=== PATIENT | female | born 1930 | race Caucasian/White ===

== ENCOUNTER 2016-07-19 10:03 | Day surgery (SDC) | payer OTHER ==
[2016-07-19 10:57] LABS: INR 1.19 (0.83-1.16); PROTIME(PATIENT) 15.1 SEC (12.0-15.0)
[2016-07-19] MEDS ORDERED: PROPOFOL 200 MG/20 ML VIAL ONE ×2 (11:50)
[2016-07-19] MEDS ORDERED: ONDANSETRON 4 MG/2 ML VIAL ONE (12:56)
--- NOTE | 2016-07-19 14:25 | GPN ---
[f rep st] PROCEDURE NOTE DATE OF PROCEDURE: 07/19/2016 PROCEDURE: Esophagogastroduodenoscopy with biopsy, endoscopic ultrasound. INDICATION: The patient is an 85-year-old female who presents for restaging of esophageal cancer. CONSENT: Risks, benefits, and alternatives of the procedure were discussed in great detail with the patient. Risks of infection, bleeding, perforation, sedation were discussed. All questions answered . Informed consent obtained. MEDICATIONS: Propofol. Please see Anesthesiology record for details. ESTIMATED BLOOD LOSS: Insignificant. ESOPHAGOGASTRODUODENOSCOPY EXAMINATION: The Olympus upper endoscope was introduced into the mouth an d advanced to the esophagus. The proximal midesophagus was normal in appearance. At 32 cm from the gums, extending to the gastroesophageal junction at 39 cm, the mucosa was ulcerated. In the distal e sophagus, part of the lesion appeared exophytic. This did extend into the cardia area. Biopsies wer e taken. The hiatal hernia extended to 43 cm from the gastroesophageal junction. The stomach was entered and closely examined, including retroflex views of the angularis, cardia and fundus. Mucosa in the antrum erythematous and biopsies were taken. The duodenal bulb was normal in appearance. In the second portion of the duodenum, a plaque was note d and biopsies were taken. ENDOSCOPIC ULTRASOUND EXAMINATION: The Olympus linear and radial echoendoscope was introduced into t he mouth and advanced to second portion of the duodenum. No suspicious periportal, peripancreatic, o r perigastric lymph nodes were appreciated. The pancreas was carefully examined. No masses or lesio ns were seen. The distal esophagus was carefully examined. There was hypoechoic thickening with penetration into t he adventitia consistent with a possible T3 lesion. However this could be secondary to treatment eff ect. No obvious liver lesion was seen. The common bile duct without stone, stricture, or stenosis. IMPRESSION: 1. No lymphadenopathy. 2. No obvious liver lesion. 3. On EUS, did hypoechoic penetration into the adventitia consistent with a T3 lesion. However, thi s could be treatment effect. 4. Followup on oncology. 5. Follow up on biopsy results. /[id number]/MODL
== END 2016-07-19 14:45 | disposition home or self-care (01) ==
LOC: FSGY 10:03
PROVIDERS: ATTEND Internal Medicine Gastroenterology
PROC: 0DB58ZX Excision of Esophagus, Via Natural or Artificial Opening Endoscopic, Diagnostic (ICD-10-PCS; principal; 2016-07-19 11:45)
PROC: 0DB98ZX Excision of Duodenum, Via Natural or Artificial Opening Endoscopic, Diagnostic (ICD-10-PCS; principal; 2016-07-19 11:45)
PROC: 0DB78ZX Excision of Stomach, Pylorus, Via Natural or Artificial Opening Endoscopic, Diagnostic (ICD-10-PCS; principal; 2016-07-19 11:45)
DX: C15.5 Malignant neoplasm of lower third of esophagus (principal); D50.0 Iron deficiency anemia secondary to blood loss (chronic); K59.00 Constipation, unspecified; F31.9 Bipolar disorder, unspecified
CPT/HCPCS: J2405; J2704

== ENCOUNTER → 2016-07-28 | Outpatient (CLI) | payer OTHER | LOC: BHFA 13:15 | PROVIDERS: ATTEND Internal Medicine Interventional Cardiology | DX: Z51.11 Encounter for antineoplastic chemotherapy (principal) ==

== ENCOUNTER → 2016-11-02 | Outpatient (CLI) | payer OTHER | PROVIDERS: ATTEND Internal Medicine Hematology & Oncology | DX: R13.10 Dysphagia, unspecified (principal); K22.2 Esophageal obstruction; K22.4 Dyskinesia of esophagus; K44.9 Diaphragmatic hernia without obstruction or gangrene; K21.9 Gastro-esophageal reflux disease without esophagitis; Z85.01 Personal history of malignant neoplasm of esophagus; Z85.028 Personal history of other malignant neoplasm of stomach | CPT/HCPCS: 74220; 74230; 92611; G8996; G8997; G8998 ==

== ENCOUNTER → 2016-11-03 | Outpatient (CLI) | payer OTHER | LOC: BHFA 14:45 | PROVIDERS: ATTEND Internal Medicine Cardiovascular Disease | DX: Z51.11 Encounter for antineoplastic chemotherapy (principal) ==

== ENCOUNTER → 2017-03-08 | Outpatient (CLI) | payer OTHER | LOC: BHFA 10:00 | PROVIDERS: ATTEND Internal Medicine Cardiovascular Disease | DX: Z51.11 Encounter for antineoplastic chemotherapy (principal) ==

== ENCOUNTER 2017-06-22 07:55 | Inpatient (IN) | payer OTHER ==
[2017-06-22] MEDS ORDERED: NS 1,000 ML IV ONE (08:27)
--- NOTE | 2017-06-22 08:30 | EDPHY ---
H & P Stated Complaint: Diarrhea for 5 days, 1 x emesis, last chemo 1 week ago Time Seen by Provider: 06/22/17 08:16 HPI/ROS: CHIEF COMPLAINT: Diarrhea HISTORY OF PRESENT ILLNESS: Patient is an 86-year-old female with a history of esophageal adenocarcinoma currently being treated with chemotherapy. She has had radiation therapy in the past. She complains of diarrhea for the last 5 days that is watery and nonbloody. She states that she was constipated for 2 weeks and was taking MiraLax until Tuesday when she began having diarrhea and has had diarrhea ever since. She does have a history of a PE and is on Xarelto. She also began a new chemotherapy agent Taxol 1 week ago today. She also had an esophageal stent placed [address] Troncoso. No recent antibiotics. No abdominal pain. No chest pain or shortness of breath. Her daughter states that there was some type of dark clot looking thing next the patient's bed this morning that she thinks the patient may have coughed up. She denies fevers. REVIEW OF SYSTEMS: Constitutional: denies: chills, fever, recent illness, recent injury EENTM: denies: blurred vision, double vision, nose congestion Respiratory: denies: cough, shortness of breath Cardiac: denies: chest pain, irregular heart rate, lightheadedness, palpitations Gastrointestinal/Abdominal: See HPI Genitourinary: denies: dysuria, frequency, hematuria, pain Musculoskeletal: denies: joint pain, muscle pain Skin: denies: lesions, rash, jaundice, bruising Neurological: denies: headache, numbness, paresthesia, tingling, dizziness, weakness Hematologic/Lymphatic: denies: blood clots, easy bleeding, easy bruising Immunologic/allergic: denies: HIV/AIDS, transplant EXAM: GENERAL: Well-appearing, well-nourished and in no acute distress. HEAD: Atraumatic, normocephalic. EYES: Pupils equal round and reactive to light, extraocular movements intact, sclera anicteric, conjunctiva are normal. ENT: TMs normal, nares patent, oropharynx clear without exudates. Slightly dry mucous membranes. NECK: Normal range of motion, supple without lymphadenopathy or JVD. LUNGS: Breath sounds clear to auscultation bilaterally and equal. No wheezes rales or rhonchi. HEART: Regular rate and rhythm without murmurs, rubs or gallops. ABDOMEN: Soft, nontender, normoactive bowel sounds. No guarding, no rebound. No masses appreciated. BACK: No CVA tenderness, no spinal tenderness, step-offs or deformities EXTREMITIES: Normal range of motion, no pitting or edema. No clubbing or cyanosis. NEUROLOGICAL: Cranial nerves II through XII grossly intact. Normal speech, normal gait. 5/5 strength, normal movement in all extremities, normal sensation PSYCH: Normal mood, normal affect. SKIN: Warm, dry, normal turgor, no visible rashes or lesions. 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; bipolar; hypothyroidism; hiatal hernia; DVT; PE; degenerative disk disease - Family History Significant Family History: No pertinent family hx - Social History Smoking Status: Never smoked Alcohol Use: None Drug Use: None Constitutional: Initial Vital Signs Temperature (C) 36.7 C 06/22/17 08:01 Heart Rate 91 06/22/17 08:01 Respiratory Rate 18 06/22/17 08:01 Blood Pressure 115/73 06/22/17 08:01 O2 Sat (%) 93 06/22/17 08:01 O2 Delivery Mode Room Air Allergies/Adverse Reactions: codeine [Codeine] Allergy (Verified 10/05/12 14:17) Rash Penicillins Allergy (Verified 10/05/12 14:17) Home Medications: Medication Instructions Recorded traZODone [traZODONE 50MG (*)] 100 mg PO HS 02/13/16 Fluticasone/Salmeter 250/50Mcg 1 puffs IH BID 06/22/17 [Advair 250/50 (*)] Levothyroxine [Synthroid 88 mcg 88 mcg PO DAILY06 06/22/17 (*)] Wagram Carbonate [Wagram 150 mg PO HS 06/22/17 Carbonate Tab 300 mg (*)] Omeprazole [Prilosec 20 mg] 40 mg PO BID 06/22/17 PACLitaxel [TaxoL] 0 mg IV WE 06/22/17 QUEtiapine FUMARATE [Seroquel 300 mg PO HS 06/22/17 300mg (*)] Rivaroxaban [Xarelto 10mg (*)] 20 mg PO DAILY 06/22/17 Medical Decision Making ED Course/Re-evaluation: The patient was able to provide a stool sample. His watery and dark. Sample sent. 10:00 a.m. the patient has Hemoccult-positive blood. We will hold her Xarelto. I will admit for continued treatment and possible upper endoscopy. I have paged hospital service. 10:05 a.m. I discussed the case with Sadie who will accept for Dr. Rodriguez. Differential Diagnosis: Partial list of the Differential diagnosis considered include but were not limited to; dehydration, GI bleed, cancer and although unlikely based on the history and physical exam, I also considered acute coronary disease, C difficile , sepsis. - Data Points Laboratory Results: Laboratory Results 06/22/17 08:35 06/22/17 08:35 06/22/17 06/22/17 06/22/17 09:00 08:35 08:35 WBC RBC Hgb Hct MCV MCH MCHC RDW Plt Count MPV Neut % (Auto) Lymph % (Auto) Potter % (Auto) Eos % (Auto) Baso % (Auto) Nucleat RBC Rel Count Absolute Neuts (auto) Absolute Lymphs (auto) Absolute Monos (auto) Absolute Eos (auto) Absolute Basos (auto) Absolute Nucleated RBC Immature Gran % Immature Gran # PT 14.0 SEC SEC (12.0-15.0) INR 1.06 (0.83-1.16) APTT 20.7 SEC L SEC (23.0-38.0) Sodium 138 mEq/L mEq/L (134-144) Potassium 4.3 mEq/L mEq/L (3.5-5.2) Chloride 107 mEq/L mEq/L (97-110) Carbon Dioxide 22 mEq/l mEq/l (22-31) Anion Gap 9 mEq/L mEq/L (8-16) BUN 17 mg/dL mg/dL (7-23) Creatinine 0.8 mg/dL mg/dL (0.6-1.0) Estimated GFR > 60 Glucose 108 mg/dL H mg/dL (70-100) Calcium 8.9 mg/dL mg/dL (8.5-10.4) Total Bilirubin 0.6 mg/dL mg/dL (0.1-1.4) Conjugated Bilirubin 0.3 mg/dL mg/dL (0.0-0.5) Unconjugated Bilirubin 0.3 mg/dL mg/dL (0.0-1.1) AST 41 IU/L IU/L (14-46) ALT 40 IU/L IU/L (9-52) Alkaline Phosphatase 83 IU/L IU/L (38-126) Total Protein 6.2 g/dL L g/dL (6.3-8.2) Albumin 3.2 g/dL L g/dL (3.5-5.0) Lipase 92 IU/L IU/L (23-300) Stool Occult Bld Scrn POSITIVE H (NEGATIVE) 06/22/17 08:35 WBC 3.01 10^3/uL L 10^3/uL (3.80-9.50) RBC 2.99 10^6/uL L 10^6/uL (4.18-5.33) Hgb 11.8 g/dL L g/dL (12.6-16.3) Hct 33.5 % L % (38.0-47.0) MCV 112.0 fL H fL (81.5-99.8) MCH 39.5 pg H pg (27.9-34.1) MCHC 35.2 g/dL g/dL (32.4-36.7) RDW 18.0 % H % (11.5-15.2) Plt Count 284 10^3/uL 10^3/uL (150-400) MPV 9.2 fL fL (8.7-11.7) Neut % (Auto) 79.4 % H % (39.3-74.2) Lymph % (Auto) 10.3 % L % (15.0-45.0) Potter % (Auto) 6.6 % % (4.5-13.0) Eos % (Auto) 2.3 % % (0.6-7.6) Baso % (Auto) 0.7 % % (0.3-1.7) Nucleat RBC Rel Count 0.0 % % (0.0-0.2) Absolute Neuts (auto) 2.39 10^3/uL 10^3/uL (1.70-6.50) Absolute Lymphs (auto) 0.31 10^3/uL L 10^3/uL (1.00-3.00) Absolute Monos (auto) 0.20 10^3/uL L 10^3/uL (0.30-0.80) Absolute Eos (auto) 0.07 10^3/uL 10^3/uL (0.03-0.40) Absolute Basos (auto) 0.02 10^3/uL 10^3/uL (0.02-0.10) Absolute Nucleated RBC 0.00 10^3/uL 10^3/uL (0-0.01) Immature Gran % 0.7 % % (0.0-1.1) Immature Gran # 0.02 10^3/uL 10^3/uL (0.00-0.10) PT INR APTT Sodium Potassium Chloride Carbon Dioxide Anion Gap BUN Creatinine Estimated GFR Glucose Calcium Total Bilirubin Conjugated Bilirubin Unconjugated Bilirubin AST ALT Alkaline Phosphatase Total Protein Albumin Lipase Stool Occult Bld Scrn Microbiology Results: MICROBIOLOGY 06/22/17 09:00 Stool Gastrointestinal Tract Panel (PCR) - Final No Organism Detected Medications Given: Discontinued Medications Sodium Chloride (Ns) 1,000 mls @ 0 mls/hr IV EDNOW ONE; Wide Open PRN Reason: Protocol Stop: 06/22/17 08:28 Last Admin: 06/22/17 08:43 Dose: 1,000 mls Departure - Departure Disposition: [facility] Inpatient Acute Clinical Impression: Upper GI bleed Diarrhea Qualifiers: Diarrhea type: unspecified type Qualified Code(s): R19.7 - Diarrhea, unspecified Condition: Fair
[2017-06-22 08:48] LABS: % IMMATURE GRANULYOCYTES 0.7 % (0.0-1.1); ABSOLUTE IMMATURE GRANULOCYTES 0.02 10^3/uL (0.00-0.10); ADD DIFF? NO; ADD MORPH? NO; ADD SCAN? NO; ATYPICAL LYMPHOCYTE FLAG 30 (0-99); FRAGMENT RBC FLAG 0 (0-99); HEMATOCRIT 33.5 % (38.0-47.0); HEMOGLOBIN 11.8 g/dL (12.6-16.3); LEFT SHIFT FLG 10 (0-99); LIPEMIA HEMOLYSIS FLAG 90 (0-99); MEAN CELL HEMOGLOBIN 39.5 pg (27.9-34.1); MEAN CELL HEMOGLOBIN CONCENTR. 35.2 g/dL (32.4-36.7); MEAN PLATELET VOLUME 9.2 fL (8.7-11.7); PLATELET CLUMPS FLAG 0 (0-99); PLATELET COUNT 284 10^3/uL (150-400); RED BLOOD CELL COUNT 2.99 10^6/uL (4.18-5.33)
[2017-06-22 08:57] LABS: INR 1.06 (0.83-1.16)
[2017-06-22 08:59] LABS: APTT 20.7 SEC (23.0-38.0)
[2017-06-22 09:04] LABS: ALANINE AMINOTRANSFERASE 40 IU/L (9-52); ALBUMIN 3.2 g/dL (3.5-5.0); ALKALINE PHOSPHATASE 83 IU/L (38-126); ANION GAP 9 mEq/L (8-16); ASPARTATE AMINOTRANSFERASE 41 IU/L (14-46); BILIRUBIN,TOTAL 0.6 mg/dL (0.1-1.4); BILIRUBIN-CONJUGATED 0.3 mg/dL (0.0-0.5); BILIRUBIN-UNCONJUGATED 0.3 mg/dL (0.0-1.1); CALCIUM 8.9 mg/dL (8.5-10.4); CARBON DIOXIDE 22 mEq/l (22-31); CHLORIDE 107 mEq/L (97-110); CREATININE 0.8 mg/dL (0.6-1.0); GLOMERULAR FILTRATION RATE > 60; GLUCOSE 108 mg/dL (70-100); POTASSIUM 4.3 mEq/L (3.5-5.2); SODIUM 138 mEq/L (134-144); TOTAL PROTEIN 6.2 g/dL (6.3-8.2)
[2017-06-22] MEDS ORDERED: ONDANSETRON 4 MG/2 ML VIAL IVP PRN (10:10)
[2017-06-22] MEDS ORDERED: ONDANSETRON DISINTEGRATING 4 MG TAB PO PRN (10:10)
[2017-06-22] MEDS ORDERED: ACETAMINOPHEN 325 MG TAB PO PRN (10:10)
[2017-06-22] MEDS ORDERED: NS 1,000 ML IV SCH (10:15)
[2017-06-22 10:38] LABS: COLOR YELLOW; LEUKOCYTE ESTERASE,URINE NEGATIVE (NEGATIVE); NITRITE,URINE NEGATIVE (NEGATIVE)
--- NOTE | 2017-06-22 12:52 | GHP ---
[f rep st] HISTORY AND PHYSICAL DATE OF ADMISSION: 06/22/2017 CHIEF COMPLAINT: Diarrhea. HISTORY OF PRESENT ILLNESS: An 86-year-old female with a history of esophageal carcinoma, actively r eceiving chemotherapy, with a history of radiation therapy and recent esophageal stenting 2 weeks ago , who presents with initiation of loose stool that she describes beginning approximately 5 days ago. The patient describes orange discolored thin stools passing upwards of five to 10 stools a day since Tuesday evening. She has had two evenings that she has been up all night long passing stools. The p atient reports that she has had improved oral intake since her esophageal stenting. Certainly does n ot have normal intake, but markedly improved. She has been tolerating oral intake and denies any vom iting. The patient lives at an independent living facility. She does wear Depends. She was noted t his morning by her daughter to have, in her bed, what either looked like a dark black emesis and/or s tool on her bed sheets. Therefore, the daughter prompted her presentation to the emergency departmen t. The patient denies any bright red blood per rectum. Denies any hematemesis. Denies any coffee-groun ds emesis. Denies any abdominal discomfort. Reports that preceding the week of diarrhea, her stools had been more formed, she believes. The patient denies any headache, vision changes, dysuria, hemat uria, lower extremity edema or rashes. The patient does note a recent new cough, denying subjective fevers and denying productive sputum. PAST MEDICAL HISTORY: 1. Esophageal carcinoma status post radiation, receiving active chemotherapy and status post esophag eal stenting x2 weeks by Dr. Troncoso. 2. Well-controlled asthma. 3. Hypertension. 4. Pulmonary embolism, on full-dose anticoagulation. 5. Bipolar disorder. SOCIAL HISTORY: The patient lives at [facility]. Drinks one glass of wine with dinne r at night. Denies tobacco, illicit drugs or marijuana. ADVANCED DIRECTIVES: The patient is full cor, full tube. FAMILY HISTORY: Negative to her knowledge for bipolar disorder. REVIEW OF SYSTEMS: A 10-point review of systems is negative, with the exception of that reported in the HPI. PHYSICAL EXAMINATION: VITAL SIGNS: Blood pressure 139/63, heart rate 70, respiratory rate 16, 93% i n room air, 36.9. GENERAL: This is an elderly, frail female lying flat in bed. HEENT: Notable for dry mucous membranes. Eye exam is negative for any icterus. CARDIAC: The patient is regular rate and rhythm. Does have a quiet systolic murmur. PULMONARY: Good respiratory effort. Clear to auscu ltation bilaterally. GASTROINTESTINAL: The patient's abdomen is soft and nontender to palpation. M USCULOSKELETAL: Negative for any lower extremity edema. SKIN: Negative for any rashes. NEUROLOGIC : She is alert and oriented x3. PSYCHIATRIC: She is pleasant and cooperative on interview and exam ination. DATA: Telemetry, which I personally reviewed and interpreted, shows sinus rhythm. LABORATORY DATA: Sodium 138, creatinine 0.8, BUN 17. Hemoglobin 11.8 which is baseline, hematocrit 33.5, white count 3.01, platelets of 284. ASSESSMENT AND PLAN: This is an 86-year-old female receiving chemotherapy for esophageal carcinoma, presenting with diarrhea and a suspected episode of melena. 1. Suspected melena. The patient does have a longstanding history of chronic anemia secondary to GI losses related to her esophageal carcinoma. The patient did have recent instrumentation by Dr. Troncoso for esophageal stenting, but reports she has been quite stable since then without recurrent episodes of melena. It is unclear to me if what she is reporting is a true episode of melena or not. Hemocc ult is positive, although I would suspect it to be based on her history. The patient's hemodynamics and labs are all stable from baseline. Will admit the patient, hydrate. Consult Gastroenterology. Hold her anticoagulation and prepare for possible instrumentation, if Gastroenterology is interested in performing EGD particularly to visualize the esophageal stent. 2. Diarrhea. The patient's GI pathogen PCR panel is negative for any infection. Suspect this may b e related to her chemotherapy. I have asked Dr. Kim from Oncology to see the patient. Will hydrate the patient and provide nutrition when cleared by Gastroenterology to do so. Will wait on Lomotil un til we see how the patient's tempo of stool loss is in the inpatient setting. 3. Asthma. Will continue her home medications. Will send a respiratory viral panel, as the patient does have an impressive cough, bedside. Will write for p.r.n. albuterol in case things worsen, as w ell as a chest x-ray. 4. History of pulmonary embolism. As above, will hold the patient's chronic anticoagulation in the setting of possible acute gastrointestinal bleed. Will additionally hold any prophylaxis. 5. Hypertension. The patient is currently normotensive. She does not appear to be on antihypertens apoorva at home. 6. Prophylaxis: SCDs, diet, n.p.o. until cleared by Gastroenterology. DISPOSITION: I expect greater than 2 midnights, as the patient has a complicated medical history at age 86 with suspected acute gastrointestinal bleed. She will require greater than 2 midnights for di agnostics and stabilization before safe disposition home. I have discussed the case with the emergency room physician. The patient will be triaged to the [facility]-surgical floor for care. /[id number]/MODL
--- NOTE | 2017-06-22 14:32 | PDMN ---
Medical Necessity Medical necessity: Pt meets IP criteria per MD; est los >2 mn for eval/tx of suspected acute GI bleed & diarrhea; admit for GI consult, diagnostics & stabilization; hx esophageal carcinoma s/p radiation & s/p esophageal stenting x2, receiving chemo, HTN, PE on AC; per H&P & order 06/22/17
[2017-06-22] MEDS: FLUTICASONE/SALMETER 250/50MCG DISKUS IH SCH (20:36)
[2017-06-22] MEDS: LITHIUM CARBONATE 300 MG TAB PO SCH (20:41)
[2017-06-22] MEDS: QUEtiapine FUMARATE 300 MG TAB PO SCH (20:43)
[2017-06-22] MEDS: traZODone 50 MG TAB PO SCH (20:43)
[2017-06-22] MEDS: PANTOPRAZOLE SODIUM 40 MG TAB PO SCH (20:44)
[2017-06-22] MEDS ORDERED: NON-FORMULARY NEW DRUG (Omeprazole [Prilosec 20 Mg] 40 MG) PO SCH (21:00)
[2017-06-23] MEDS: LR 1,000 ML IV SCH (03:13)
--- NOTE | 2017-06-23 04:31 | GCON ---
[f rep st] CONSULTATION ONCOLOGY CONSULTATION REFERRING PHYSICIAN: Hilary Rodriguez MD REASON FOR CONSULTATION: Esophageal cancer. HISTORY OF PRESENT ILLNESS: The patient is an 86-year-old woman followed by Dr. Graham for locally advanced GE junction cancer. She was diagnosed in December 2015, when she was found to have a T3N0 (2b) distal esophageal adenocarcinoma, HER2 positive, in the setting of hematemesis. She received weekly carboplatin/Taxol concurrent with radiation (01/19/2016 to 03/01/2016). July 2016, she was found to have recurrence in the esophagus, and received Xeloda and Herceptin. Dr. Troncoso has performed stricture dilations, and she more recently had an esophageal stent placed 06/08/2017. That has led to improved swallowing. She just began therapy with weekly Taxol 06/15/2017 (60 mg/sq m weekly). She presented today to the emergency room with several days of diarrhea. She reports black, tarry stool. She has had no new dysphagia and no odynophagia. She has had no pain. She has no abdominal pain or cramping. No hematemesis. No fever or chills. She had no difficulty with her chemotherapy last week. PAST MEDICAL HISTORY: 1. Esophageal cancer, as above. 2. Asthma. 3. Hypertension. 4. PE, currently on Xarelto. She does not recall exactly when her PE was, but it was remote. 5. Bipolar disorder. SOCIAL HISTORY: She lives in a senior independent living center. FAMILY HISTORY: Noncontributory. REVIEW OF SYSTEMS: CONSTITUTIONAL: No fever or chills. CARDIOVASCULAR: No dizziness, chest pain, palpitations, lower extremity edema. RESPIRATORY: No shortness of breath, pleurisy. GI: Per HPI. HEMATOLOGIC: No other bleeding, no bruising. NEUROLOGIC: No peripheral neuropathy. MUSCULOSKELETAL: No arthralgias following Taxol last week. PHYSICAL EXAMINATION: VITAL SIGNS: Blood pressure 156/74, heart rate 69, respirations 18, 91% on room air, afebrile. GENERAL: Pleasant woman in no acute distress. CARDIOVASCULAR: Regular rate and rhythm. No pretibial edema. LUNGS: Clear to auscultation bilaterally. ABDOMEN: Positive bowel sounds. Soft, nontender, nondistended. SKIN: No petechiae, ecchymoses. NEUROLOGIC: Grossly nonfocal. LABORATORY DATA: WBC 3.0, hemoglobin 11.8, MCV 112, platelets 284,000, ANC 2.3. Normal PT/INR. PTT slightly short at 20.7. Normal CMP. Of note, BUN 17 , creatinine 0.8. GI PCR panel negative. Hemoglobin 1 week ago was 12.1. IMAGING: Chest x-ray: Possible patchy bibasilar lower lobe pneumonia. IMPRESSION: 1. Diarrhea, melena: Most likely source is the esophagus. Stent was placed 2 weeks ago. Gastroenterology has been consulted. Xarelto has been held. Her hemoglobin is stable from prior values, and she is hemodynamically stable. 2. Abnormal chest x-ray: She may have some chronic aspiration, but, in the absence of fever or symptoms, would hold antibiotics. 3. History of pulmonary embolism: This appears to be remote, but do not have specific details. Xarelto is being held. If her pulmonary embolism was, indeed , remote, while she is at risk of recurrent venous thromboembolism, given her malignancy, if she has significant chronic bleeding, long-term anticoagulation would need to be held indefinitely. 4. Recurrent esophageal cancer: Cycle 1, day 8 weekly Taxol. Treatment today has, obviously, been held. /[id number]/MODL MTDD
[2017-06-23 05:50] LABS: % IMMATURE GRANULYOCYTES 0.7 % (0.0-1.1); ABSOLUTE IMMATURE GRANULOCYTES 0.02 10^3/uL (0.00-0.10); ADD DIFF? NO; ADD MORPH? NO; ADD SCAN? NO; ANION GAP 8 mEq/L (8-16); ATYPICAL LYMPHOCYTE FLAG 80 (0-99); CALCIUM 8.3 mg/dL (8.5-10.4); CARBON DIOXIDE 19 mEq/l (22-31); CHLORIDE 112 mEq/L (97-110); CREATININE 0.8 mg/dL (0.6-1.0); FRAGMENT RBC FLAG 0 (0-99); GLOMERULAR FILTRATION RATE > 60; GLUCOSE 78 mg/dL (70-100); HEMATOCRIT 29.7 % (38.0-47.0); HEMOGLOBIN 10.2 g/dL (12.6-16.3); LEFT SHIFT FLG 0 (0-99); LIPEMIA HEMOLYSIS FLAG 90 (0-99); MEAN CELL HEMOGLOBIN 39.2 pg (27.9-34.1); MEAN CELL HEMOGLOBIN CONCENTR. 34.3 g/dL (32.4-36.7); MEAN CELL VOLUME 114.2 fL (81.5-99.8); MEAN PLATELET VOLUME 9.3 fL (8.7-11.7); PLATELET CLUMPS FLAG 0 (0-99); PLATELET COUNT 258 10^3/uL (150-400); POTASSIUM 3.8 mEq/L (3.5-5.2); RED CELL DISTRIBUTION WIDTH 17.8 % (11.5-15.2); SODIUM 139 mEq/L (134-144)
[2017-06-23] MEDS: LEVOTHYROXINE 88 MCG TAB PO SCH (05:58)
[2017-06-23] MEDS: FLUTICASONE/SALMETER 250/50MCG DISKUS IH SCH ×2 (08:19→20:58)
[2017-06-23] MEDS: PANTOPRAZOLE SODIUM 40 MG TAB PO SCH ×2 (08:47→21:44)
--- NOTE | 2017-06-23 13:32 | HOSPPROG ---
Hospitalist Progress Note Assessment/Plan: # UGIB - patient remained stable overnight with no stools hgb 11-> 10 with IVF - then developed recurrent melena prior to dc discussed case with Dr. Kellogg - melena may be old blood or possibly complication/ulceration related to recent stent - keep overnight to monitor - if recurrent melena GI may scope tonight - clear liquid diet - CBC in am - cont to hold anticoagulation # Diarrhea - had resolved overnight - GI pathogen panel negative at admit - cont to monitor - receive appropriate IVF overnight # Esophageal CA - receiving chemotherapy - monitored closely by Onc # cough - CXR (personally reviewed and interpreted) bilaterl lower lobe opacifications possible aspiration- respiratory panel negative Oxygen saturations 96% on 2 L no fever or elevation in WBC (although on chemo) - dw Onc will monitor for now no empiric abx # proph - no anticoagulation # diet- clear liquids # dispo- > 2MN as requires ongoing monitoring I have discussed the case with Gastroenterology and Oncology we will keep the patient overnight for additional monitoring Subjective: passed melena this am - no abd pain or nausea Objective: Vital Signs Temp Pulse Resp BP Pulse Ox 36.7 C 66 20 112/61 96 06/23/17 11:24 06/23/17 11:24 06/23/17 11:24 06/23/17 11:24 06/23/17 11:24 Microbiology 06/22/17 12:45 Respiratory Panel (PCR) - Final Nasal, Sinus - Anaerobic Tube/Swab No Organism Detected Laboratory Results 06/23/17 04:16 06/23/17 04:16 06/22/17 06/23/17 06/24/17 05:59 05:59 05:59 Intake Total 825 775 Output Total 20 Balance 805 775 PT 14.0 SEC (12.0-15.0) 06/22/17 08:35 INR 1.06 (0.83-1.16) 06/22/17 08:35 - Physical Exam Constitutional: no apparent distress Eyes: anicteric sclera Ears, Nose, Mouth, Throat: dry mucous membranes Cardiovascular: regular rate and rhythym Respiratory: no respiratory distress Gastrointestinal: normoactive bowel sounds, No tenderness Genitourinary: no bladder fullness Skin: warm Musculoskeletal: No asymmetric calves Neurologic: AAOx3 Psychiatric: interacting appropriately Lymph, Heme, Immunologic: no cervical LAD ICD10 Worksheet Patient Problems: Problems Problem Status Onset Diarrhea Acute Upper GI bleed Acute Deep venous thrombosis Active
--- NOTE | 2017-06-23 17:51 | ASMTCMCOM ---
CM Note CM Note Notes: Pt lives at [facility], dc needs unclear. CM w/f Date Signed: 06/23/2017 05:50 PM Electronically Signed By:Adelita Huggins RN
--- NOTE | 2017-06-23 18:49 | SOAPPROG ---
SOREECE Progress Note Assessment/Plan: Assessment: 1. UGIB-likely secondary to known esophageal cancer, s/p stent placement 2 weeks ago. Hemodynamically stable, hgb stable, but recurrent melana this morning. 2. Esophageal cancer-followed by Dr. graham, recently started on new treatment with taxol/ramucirumab. 3. History of PE-xaralto being held in light of recent bleed. Plan: Likely discharge tomorrow if no more melena follow up with Dr. Graham next week continue to hold xaralto 06/23/17 18:45 06/23/17 18:45 Subjective: no new symptoms Objective: Vital Signs Temp Pulse Resp BP Pulse Ox 36.9 C 64 20 139/72 H 94 06/23/17 15:57 06/23/17 15:57 06/23/17 15:57 06/23/17 15:57 06/23/17 15:57 Microbiology 06/22/17 12:45 Respiratory Panel (PCR) - Final Nasal, Sinus - Anaerobic Tube/Swab No Organism Detected Laboratory Results 06/23/17 04:16 06/23/17 04:16 06/22/17 06/23/17 06/24/17 05:59 05:59 05:59 Intake Total 825 775 Output Total 20 Balance 805 775 PT 14.0 SEC (12.0-15.0) 06/22/17 08:35 INR 1.06 (0.83-1.16) 06/22/17 08:35 Physical Exam - Physical Exam General Appearance: alert, no apparent distress Respiratory: lungs clear Abdomen: non-tender, soft ICD10 Worksheet Patient Problems: Problems Problem Status Onset Diarrhea Acute Upper GI bleed Acute Deep venous thrombosis Active
[2017-06-23] MEDS: LITHIUM CARBONATE 300 MG TAB PO SCH (21:44)
[2017-06-23] MEDS: traZODone 50 MG TAB PO SCH (21:44)
[2017-06-23] MEDS: QUEtiapine FUMARATE 300 MG TAB PO SCH (21:44)
[2017-06-24] MEDS: LEVOTHYROXINE 88 MCG TAB PO SCH (05:05)
[2017-06-24 05:12] LABS: HEMATOCRIT 29.2 % (38.0-47.0); MEAN CELL HEMOGLOBIN 38.5 pg (27.9-34.1); MEAN CELL HEMOGLOBIN CONCENTR. 34.2 g/dL (32.4-36.7); MEAN CELL VOLUME 112.3 fL (81.5-99.8); RED BLOOD CELL COUNT 2.6 10^6/uL (4.18-5.33); RED CELL DISTRIBUTION WIDTH 17.8 % (11.5-15.2)
[2017-06-24] MEDS: PANTOPRAZOLE SODIUM 40 MG TAB PO SCH ×2 (10:26→20:06)
[2017-06-24] MEDS: FLUTICASONE/SALMETER 250/50MCG DISKUS IH SCH ×2 (10:29→20:07)
[2017-06-24] MEDS: LR 1,000 ML IV SCH (11:01)
--- NOTE | 2017-06-24 15:06 | HOSPPROG ---
Hospitalist Progress Note Assessment/Plan: Patient is an 86 y/o female w hx of esophageal carcinoma, receiving chemotherapy. Had recent radiation and esophageal stenting 2 weeks ago. She presented with ongoing diarrhea. Today is my first encounter w the patient, chart reviewed. *UGIB -hgb/hct stable -s/p esophageal stent 2 weeks ago -has some recurrent melena -cont hold Xarelto -will need to see GI if she cont to bleed (Dr Kellogg is familiar with her case) -tolerating cl liquids/ she is hungry/will do a trial of BRAT diet -recheck labs in a.m. *Diarrhea -GI pathogen is negative -resolved *Hx of PE -Xarelto on hold due to recent bleeding *Esophageal Ca -sees Dr Graham *cough -none further *Plan: trial of brat diet, recheck her labs in the morning/ reviewed her care w Dr Chely Kim. Subjective: Sue is feeling better, no further diarrhea. Objective: Vital Signs Temp Pulse Resp BP Pulse Ox 36.9 C 69 20 123/58 H 92 06/24/17 11:23 06/24/17 11:23 06/24/17 11:23 06/24/17 11:23 06/24/17 11:23 Laboratory Results 06/24/17 05:00 06/23/17 04:16 06/23/17 06/24/17 06/25/17 05:59 05:59 05:59 Intake Total 825 977 Output Total 20 Balance 805 977 PT 14.0 SEC (12.0-15.0) 06/22/17 08:35 INR 1.06 (0.83-1.16) 06/22/17 08:35 - Physical Exam Constitutional: not in pain, other (thin ) Eyes: PERRL Ears, Nose, Mouth, Throat: hearing normal Cardiovascular: regular rate and rhythym Respiratory: no respiratory distress Gastrointestinal: normoactive bowel sounds Skin: warm, No normal color (pale) Musculoskeletal: generalized weakness Neurologic: AAOx3 Psychiatric: interacting appropriately, not anxious ICD10 Worksheet Patient Problems: Problems Problem Status Onset Diarrhea Acute Upper GI bleed Acute Deep venous thrombosis Active
--- NOTE | 2017-06-24 16:43 | ASMTCMCOM ---
CM Note CM Note Notes: Spoke w/pt and dtr, pt lives at [facility], will return there when medically stable. PT recommends homecare but pt declines at this time. DC Plan: Home to [facility] Date Signed: 06/24/2017 04:42 PM Electronically Signed By:Adelita Huggins RN
[2017-06-24] MEDS: LITHIUM CARBONATE 300 MG TAB PO SCH (20:06)
[2017-06-24] MEDS: QUEtiapine FUMARATE 300 MG TAB PO SCH (20:06)
[2017-06-24] MEDS: traZODone 50 MG TAB PO SCH (20:06)
--- NOTE | 2017-06-24 22:26 | SOAPPROG ---
SOAP Progress Note Assessment/Plan: A/P: * GIB: likely esophageal source with limited options for intervention, hemodynamically stable and fiarly stable chronic anemia. Will observe overnight and if stable, d/c. We discussed that she may continue to have intermittent dark stools. We reviewed sxs for which she should call (pain, dizziness, increased bleeding, etc.). She will have close f/u with labs in the office. * h/o PE: unclear details, remote. d/c Xarelto given risk/benefit. She and daughter are comfortable with that. * Locally advanced esophageal cancer: s/p one cycle of weekly Taxol. Will need to f/u with Dr. Graham to resume tx. 06/24/17 22:23 Subjective: Had some recurrent melena. No dizziness, AP. Daughter present. O: VS reviewed, stable. Gen: pleasant elderly woman in NAD. Resp: breathing comfortably. Abd: nontender. Laboratory Tests 06/22/17 06/23/17 06/24/17 08:35 04:16 05:00 Hgb 11.8 L 10.2 L 10.0 L Objective: Vital Signs Temp Pulse Resp BP Pulse Ox 37.1 C 60 20 128/68 H 93 06/24/17 20:00 06/24/17 20:00 06/24/17 15:35 06/24/17 20:00 06/24/17 20:00 Laboratory Results 06/24/17 05:00 06/23/17 04:16 06/23/17 06/24/17 06/25/17 05:59 05:59 05:59 Intake Total 825 977 880 Output Total 20 Balance 805 977 880 PT 14.0 SEC (12.0-15.0) 06/22/17 08:35 INR 1.06 (0.83-1.16) 06/22/17 08:35 ICD10 Worksheet Patient Problems: Problems Problem Status Onset Diarrhea Acute Upper GI bleed Acute Deep venous thrombosis Active
[2017-06-25] MEDS: LEVOTHYROXINE 88 MCG TAB PO SCH (06:18)
[2017-06-25 06:51] LABS: % IMMATURE GRANULYOCYTES 0.7 % (0.0-1.1); ABSOLUTE IMMATURE GRANULOCYTES 0.02 10^3/uL (0.00-0.10); ADD DIFF? NO; ADD MORPH? NO; ADD SCAN? YES; FRAGMENT RBC FLAG 0 (0-99); HEMATOCRIT 30.7 % (38.0-47.0); HEMOGLOBIN 10.5 g/dL (12.6-16.3); LEFT SHIFT FLG 0 (0-99); LIPEMIA HEMOLYSIS FLAG 90 (0-99); MEAN CELL HEMOGLOBIN 38.5 pg (27.9-34.1); MEAN CELL HEMOGLOBIN CONCENTR. 34.2 g/dL (32.4-36.7); MEAN CELL VOLUME 112.5 fL (81.5-99.8); MEAN PLATELET VOLUME 8.9 fL (8.7-11.7); PLATELET CLUMPS FLAG 20 (0-99); PLATELET COUNT 281 10^3/uL (150-400); RED BLOOD CELL COUNT 2.73 10^6/uL (4.18-5.33); RED CELL DISTRIBUTION WIDTH 17.2 % (11.5-15.2)
[2017-06-25 06:52] LABS: ATYPICAL LYMPHOCYTE FLAG 120 (0-99)
[2017-06-25 07:15] LABS: SCAN NEGATIVE
[2017-06-25] MEDS: FLUTICASONE/SALMETER 250/50MCG DISKUS IH SCH ×2 (09:49→20:12)
--- NOTE | 2017-06-25 11:00 | HOSPPROG ---
Hospitalist Progress Note Assessment/Plan: Patient is an 86 y/o female w hx of esophageal carcinoma, receiving chemotherapy. Had recent radiation and esophageal stenting 2 weeks ago. She presented with ongoing diarrhea. Today is my first encounter w the patient, chart reviewed. *UGIB -hgb/hct stable -s/p esophageal stent 2 weeks ago -has some recurrent melena -DC Xarelto -will need to see GI if she cont to bleed (Dr Kellogg is familiar with her case) -tolerating BRAT/advance to regular *Diarrhea -GI pathogen is negative -resolved *Hx of PE -Xarelto DC due to recent bleeding *Esophageal Ca -sees Dr Graham *cough -none further *Plan: Pt stable. Doesn't feel comfortable DC home today Afraid of recurring diarrhea. Will plan for DC home in am if continues to feel well. Subjective: Less diarrhea. No pain. Doesn't feel comfortable DC home. No pain. Objective: Vital Signs Temp Pulse Resp BP Pulse Ox 37.1 C 67 16 115/55 L 91 L 06/25/17 07:18 06/25/17 07:18 06/25/17 07:18 06/25/17 07:18 06/25/17 07:18 Laboratory Results 06/25/17 06:30 06/23/17 04:16 06/24/17 06/25/17 06/26/17 05:59 05:59 05:59 Intake Total 977 880 Balance 977 880 PT 14.0 SEC (12.0-15.0) 06/22/17 08:35 INR 1.06 (0.83-1.16) 06/22/17 08:35 - Physical Exam Constitutional: no apparent distress, not in pain, chronically ill appearing Eyes: PERRL, anicteric sclera, EOMI Ears, Nose, Mouth, Throat: moist mucous membranes, hearing normal, ears appear normal Cardiovascular: regular rate and rhythym, No JVD, No edema Respiratory: no respiratory distress, no rales or rhonchi, reduced air movement Gastrointestinal: normoactive bowel sounds, No tenderness, No ascites Skin: warm, normal color, No mottled Musculoskeletal: normal joint ROM, no joint effusions, generalized weakness Neurologic: AAOx3 Psychiatric: interacting appropriately, not encephalopathic, thought process linear, anxious ICD10 Worksheet Patient Problems: Problems Problem Status Onset Deep venous thrombosis Active Diarrhea Acute Upper GI bleed Acute
[2017-06-25] MEDS: PANTOPRAZOLE SODIUM 40 MG TAB PO SCH ×2 (11:31→20:12)
--- NOTE | 2017-06-25 15:08 | SOAPPROG ---
SOAP Progress Note Assessment/Plan: E&M esophageal cancer * Locally advanced esophageal cancer: s/p one cycle of weekly Taxol. To f/u with Dr. Graham after discharge. * Upper GI bleed: likely esophageal source with limited options for intervention, hemodynamically stable and h/h stable. We reviewed sxs for which she should call (pain, dizziness, increased bleeding, etc.). She will have close f/u with labs in the office. * Remote h/o PE: unclear details, remote. d/c Xarelto given risk/benefit. She and daughter are comfortable with that. Subjective: Daughter with patient. Anxious about going home. Diarrhea this morning but no bleeding. Objective: Vital Signs Temp Pulse Resp BP Pulse Ox 36.8 C 67 20 122/71 H 93 06/25/17 11:15 06/25/17 11:15 06/25/17 11:15 06/25/17 11:15 06/25/17 11:15 Laboratory Results 06/25/17 06:30 06/23/17 04:16 06/24/17 06/25/17 06/26/17 05:59 05:59 05:59 Intake Total 977 880 Balance 977 880 PT 14.0 SEC (12.0-15.0) 06/22/17 08:35 INR 1.06 (0.83-1.16) 06/22/17 08:35 Laboratory Tests 06/23/17 06/24/17 06/25/17 04:16 05:00 06:30 Hgb 10.2 L 10.0 L 10.5 L Physical Exam - Physical Exam General Appearance: no apparent distress Cardiac/Chest: regular rate, rhythm Abdomen: normal bowel sounds, non-tender, soft ICD10 Worksheet Patient Problems: Problems Problem Status Onset Diarrhea Acute Upper GI bleed Acute Deep venous thrombosis Active
[2017-06-25] MEDS: traZODone 50 MG TAB PO SCH (20:11)
[2017-06-25] MEDS: LITHIUM CARBONATE 300 MG TAB PO SCH (20:12)
[2017-06-25] MEDS: QUEtiapine FUMARATE 300 MG TAB PO SCH (20:12)
[2017-06-26] MEDS: LEVOTHYROXINE 88 MCG TAB PO SCH (05:43)
[2017-06-26] MEDS: PANTOPRAZOLE SODIUM 40 MG TAB PO SCH ×2 (09:46→20:17)
[2017-06-26] MEDS: LOPERAMIDE HCL 2 MG CAP PO PRN (09:46)
[2017-06-26] MEDS: FLUTICASONE/SALMETER 250/50MCG DISKUS IH SCH ×2 (09:47→20:16)
--- NOTE | 2017-06-26 10:03 | HOSPPROG ---
Hospitalist Progress Note Assessment/Plan: Patient is an 86 y/o female w hx of esophageal carcinoma, receiving chemotherapy. Had recent radiation and esophageal stenting 2 weeks ago. She presented with ongoing diarrhea. *UGIB -hgb/hct stable -s/p esophageal stent 2 weeks ago -has some recurrent melena -DC Xarelto -will need to see GI if she cont to bleed (Dr Kellogg is familiar with her case) -tolerating regular diet *Diarrhea -GI pathogen is negative -continues, add imodium *Hx of PE -Xarelto DC due to recent bleeding *Esophageal Ca -sees Dr Graham *cough -none further *Plan: Pt stable. Doesn't feel comfortable DC home today Afraid of recurring diarrhea. Will plan for DC home in am if continues to feel well or to snf Subjective: Still having some diarrhea. No bleeding. Anxious. Objective: Vital Signs Temp Pulse Resp BP Pulse Ox 36.6 C 63 20 115/61 91 L 06/26/17 08:00 06/26/17 08:00 06/26/17 08:00 06/26/17 08:00 06/26/17 08:00 Laboratory Results 06/25/17 06:30 06/23/17 04:16 06/25/17 06/26/17 06/27/17 05:59 05:59 05:59 Intake Total 880 1100 Balance 880 1100 PT 14.0 SEC (12.0-15.0) 06/22/17 08:35 INR 1.06 (0.83-1.16) 06/22/17 08:35 - Physical Exam Constitutional: no apparent distress, not in pain Eyes: PERRL, anicteric sclera Ears, Nose, Mouth, Throat: moist mucous membranes, hearing normal Cardiovascular: regular rate and rhythym, No JVD Respiratory: no respiratory distress, reduced air movement Gastrointestinal: No tenderness, No ascites Skin: warm, normal color Musculoskeletal: no joint effusions, generalized weakness Neurologic: AAOx3 Psychiatric: interacting appropriately, not encephalopathic, anxious ICD10 Worksheet Patient Problems: Problems Problem Status Onset Deep venous thrombosis Active Diarrhea Acute Upper GI bleed Acute
--- NOTE | 2017-06-26 14:13 | ASMTCMCOM ---
CM Note CM Note Notes: CM spoke w/ Yesenia Gonsales, JOB COACH/JOB DEVELOPER regarding d/c POC. CM met w/ pt and daughter for dispo planning. Pt and daughter would like SNF if the diarrhea continues to persist. Pt reports that when the diarrhea comes it causes her significant weakness. CM completed triggering PASRR. CM sent it to [facility] to assess. [facility] to [facility] and [facility]. CM to follow. Plan: home independent vs SNF pending if diarrhea continues to persist Date Signed: 06/26/2017 02:13 PM Electronically Signed By:JUAN CARLOS Tobias
[2017-06-26] MEDS: LITHIUM CARBONATE 300 MG TAB PO SCH (20:16)
[2017-06-26] MEDS: QUEtiapine FUMARATE 300 MG TAB PO SCH (20:17)
[2017-06-26] MEDS: traZODone 50 MG TAB PO SCH (20:17)
[2017-06-27] MEDS: LEVOTHYROXINE 88 MCG TAB PO SCH (05:37)
[2017-06-27] MEDS: PANTOPRAZOLE SODIUM 40 MG TAB PO SCH ×2 (08:37→19:54)
[2017-06-27] MEDS: LOPERAMIDE HCL 2 MG CAP PO PRN (08:46)
[2017-06-27] MEDS: FLUTICASONE/SALMETER 250/50MCG DISKUS IH SCH ×2 (10:32→20:02)
--- NOTE | 2017-06-27 10:36 | PDIAF ---
- Diagnosis Diagnosis: diarrhea Code Status: Full Code - Medication Management Discharge Medications: Medications to Continue on Transfer traZODone [traZODONE 50MG (*)] 100 mg PO HS 02/13/16 [Last Taken 06/21/17] Fluticasone/Salmeter 250/50Mcg [Advair 250/50 (*)] 1 puffs IH BID 06/22/17 [ Last Taken 06/21/17 21:00] Levothyroxine [Synthroid 88 mcg (*)] 88 mcg PO DAILY06 06/22/17 [Last Taken 06/26] [place]ord Carbonate [Safford Carbonate Tab 300 mg (*)] 150 mg PO HS 06/22/17 [ Last Taken 06/21/17] Omeprazole [Prilosec 20 mg] 40 mg PO BID 06/22/17 [Last Taken 06/21/17 21:00] PACLitaxel [TaxoL] 0 mg IV WE 06/22/17 [Last Taken 06/15/17] QUEtiapine FUMARATE [Seroquel 300mg (*)] 300 mg PO HS 06/22/17 [Last Taken 06/21] Rivaroxaban [Xarelto 10mg (*)] 20 mg PO DAILY 06/22/17 [Last Taken 06/21/17] Discharge Medications: Refer to the Discharge Home Medication list for PRN reason. - Orders Services needed: Registered Nurse, Physical Therapy, Occupational Therapy Isolation Type: Chemotherapy Isolation Diet Recommendation: no restrictions on diet Diet Texture: Regular Texture Diet - Follow Up Care Current Providers and Referrals: Rayray Raines MD [Primary Care Provider] - As per Instructions
--- NOTE | 2017-06-27 15:39 | HOSPPROG ---
Hospitalist Progress Note Assessment/Plan: Patient is an 86 y/o female w hx of esophageal carcinoma, receiving chemotherapy. Had recent radiation and esophageal stenting 2 weeks ago. She presented with ongoing diarrhea. *UGIB -hgb/hct stable -s/p esophageal stent 2 weeks ago -has some recurrent melena -DC Xarelto -will need to see GI if she cont to bleed (Dr Kellogg is familiar with her case) -tolerating regular diet *Diarrhea -GI pathogen is negative -continues, add imodium *Hx of PE -Xarelto DC due to recent bleeding *Esophageal Ca -sees Dr Graham *cough -none further *Plan: Pt stable. awaiting insurance auth Subjective: Still having multiple stools. Less diarrhea. Objective: Vital Signs Temp Pulse Resp BP Pulse Ox 36.8 C 66 16 125/67 H 92 06/27/17 11:32 06/27/17 11:32 06/27/17 11:32 06/27/17 11:32 06/27/17 11:32 Laboratory Results 06/25/17 06:30 06/23/17 04:16 06/26/17 06/27/17 06/28/17 05:59 05:59 05:59 Intake Total 1100 200 Balance 1100 200 PT 14.0 SEC (12.0-15.0) 06/22/17 08:35 INR 1.06 (0.83-1.16) 06/22/17 08:35 - Physical Exam Constitutional: appears nourished, chronically ill appearing, uncomfortable Eyes: PERRL, anicteric sclera, EOMI Ears, Nose, Mouth, Throat: moist mucous membranes, hearing normal, ears appear normal Cardiovascular: regular rate and rhythym, No JVD, No edema Respiratory: no respiratory distress, no rales or rhonchi, reduced air movement Gastrointestinal: normoactive bowel sounds, No tenderness, No ascites Skin: warm, normal color, No erythema Musculoskeletal: normal joint ROM, no joint effusions, generalized weakness Neurologic: AAOx3 Psychiatric: interacting appropriately, not encephalopathic, thought process linear, anxious ICD10 Worksheet Patient Problems: Problems Problem Status Onset Deep venous thrombosis Active Diarrhea Acute Upper GI bleed Acute
--- NOTE | 2017-06-27 16:49 | ASMTCMCOM ---
CM Note CM Note Notes: D/C postponed until tomorrow ideally. [facility] need to obtain auth from [facility]. CM notified family, RN and MD. CM to follow. Plan: [facility] Date Signed: 06/27/2017 04:49 PM Electronically Signed By:JUAN CARLOS Tobias
[2017-06-27] MEDS: QUEtiapine FUMARATE 300 MG TAB PO SCH (19:54)
[2017-06-27] MEDS: LITHIUM CARBONATE 300 MG TAB PO SCH (19:54)
[2017-06-27] MEDS: traZODone 50 MG TAB PO SCH (19:54)
[2017-06-27 22:44] VITALS: O2SAT 90
[2017-06-28] MEDS: LEVOTHYROXINE 88 MCG TAB PO SCH (06:07)
[2017-06-28 08:00] VITALS: BP 112/62; PULSE 75; RESP 20; TEMP 98
[2017-06-28] MEDS: FLUTICASONE/SALMETER 250/50MCG DISKUS IH SCH (09:20)
[2017-06-28] MEDS: PANTOPRAZOLE SODIUM 40 MG TAB PO SCH (09:45)
--- NOTE | 2017-06-28 11:59 | ASMTCMCOM ---
CM Note CM Note Notes: CM met w/ pt and daughter for dispo planning. Both daughter and pt agree that it is not necessary to go to SNF at this time. Pt reports that her diarrhea has resolved itself. Pt plans on returning back to [facility]. Daughter will transport pt back home. CM called [facility] to notify them that pt no longer needs rehab. CM available for changes. Plan: Independent Date Signed: 06/28/2017 11:58 AM Electronically Signed By:JUAN CARLOS Tobias
--- NOTE | 2017-06-28 12:59 | PDIAF ---
- Diagnosis Diagnosis: diarrhea Code Status: Full Code - Medication Management Discharge Medications: Medications to Continue on Transfer traZODone [traZODONE 50MG (*)] 100 mg PO HS 02/13/16 [Last Taken 06/21/17] Fluticasone/Salmeter 250/50Mcg [Advair 250/50 (*)] 1 puffs IH BID 06/22/17 [ Last Taken 06/21/17 21:00] Levothyroxine [Synthroid 88 mcg (*)] 88 mcg PO DAILY06 06/22/17 [Last Taken 06/26] [place] Carbonate [[place] Carbonate Tab 300 mg (*)] 150 mg PO HS 06/22/17 [ Last Taken 06/21/17] Omeprazole [Prilosec 20 mg] 40 mg PO BID 06/22/17 [Last Taken 06/21/17 21:00] PACLitaxel [TaxoL] 0 mg IV WE 06/22/17 [Last Taken 06/15/17] QUEtiapine FUMARATE [Seroquel 300mg (*)] 300 mg PO HS 06/22/17 [Last Taken 06/21] Rivaroxaban [Xarelto 10mg (*)] 20 mg PO DAILY 06/22/17 [Last Taken 06/21/17] Loperamide HCl [Imodium 2 mg (*)] 2 mg PO QID PRN #14 cap 06/28/17 [Last Taken Unknown] Discharge Medications: Refer to the Discharge Home Medication list for PRN reason. - Orders Services needed: Physical Therapy, Occupational Therapy Isolation Type: Chemotherapy Isolation Diet Recommendation: no restrictions on diet Diet Texture: Regular Texture Diet - Follow Up Care Current Providers and Referrals: Rayray Raines MD [Primary Care Provider] - As per Instructions Amol Graham MD [Medical Doctor] -
--- NOTE | 2017-06-28 12:59 | PDDCSUM ---
Discharge Summary Discharge Summary: Dates of service: 06/22-06/28/17 Consultations: oncology Procedures: none Hospital course by problem: Patient is an 86 y/o female w hx of esophageal carcinoma, receiving chemotherapy. Had recent radiation and esophageal stenting 2 weeks ago. She presented with ongoing diarrhea. *UGIB -hgb/hct stable prior to dc -s/p esophageal stent 2 weeks ago -have been holding xarelto, has f/u with onc in am and will decide when to resume *Diarrhea -GI pathogen is negative -now resolved *Hx of PE -Xarelto DC due to recent bleeding--will f/u with oncology to determine when to resume *Esophageal Ca -sees Dr Graham, has f/u for 06/29 *cough -none further dc home with home health f/u with oncology as above
--- NOTE | 2017-06-28 15:11 | ASMTCMCOM ---
CM Note CM Note Notes: PT is recommending HC. Pt is agreeable to having HC. [facility] agency and they are able to accept pt. CM sent d/c orders to [facility]. CM to follow. Plan: HC; PT Date Signed: 06/28/2017 03:11 PM Electronically Signed By:JUAN CARLOS Tobias
--- NOTE | 2017-06-28 15:12 | ASDISCHSUM ---
Discharge Information Plan Status:Home with Home Health Medically Cleared to Leave:06/27/2017 Discharge Date:06/28/2017 01:35 PM CM D/C Disposition: ADT D/C Disposition:Home Health Service Projected Discharge Date:06/28/2017 11:00 AM Transportation at D/C: Discharge Delay Reason: Follow-Up Date:06/28/2017 11:00 AM Discharge Slot: Final Diagnosis: Placement Information Referral Type:*Care Home/SNF Referral ID:[id number] Provider Name: Address 1: Phone Number: Address 2: Fax Number: City: Selection Factors: State: Referral Type:*Home Health Care Services Referral ID:[id number] Provider Name:[facility] (formerly [facility]) Address [address] Address 2: City:[place] Selection Factors: State:[place] Patient Contact Information Contact Name:KRISTINE Relationship:Daughter Address:[address] [place] [address] Home Phone: City:[place] Alternate Phone: State/Zip Code:[place] [address] Email: Financial Information Financial Class: Primary Plan Desc:MEDICARE IP PART B ONLY Primary Plan Number:[id number] Secondary Plan Desc:[employer] PPO Secondary Plan Number:[id number] Assessment Information [facility] CM Progress Note CM Note CM Note Notes: Pt lives at [facility], dc needs unclear. CM w/f Date Signed: 06/23/2017 05:50 PM Electronically Signed By:Adelita Huggins RN [facility] CM Progress Note CM Note CM Note Notes: Spoke w/pt and dtr, pt lives at [facility], will return there when medically stable. PT recommends homecare but pt declines at this time. DC Plan: Home to [facility] Date Signed: 06/24/2017 04:42 PM Electronically Signed By:Adelita Huggins RN [facility] CM Progress Note CM Note CM Note Notes: CM spoke w/ Yesenia Gonsales NP regarding d/c POC. CM met w/ pt and daughter for dispo planning. Pt and daughter would like SNF if the diarrhea continues to persist. Pt reports that when the diarrhea comes it causes her significant weakness. CM completed triggering PASRR. CM sent it to [facility] to assess. Referrals made to [facility] and [facility]. CM to follow. Plan: home independent vs SNF pending if diarrhea continues to persist Date Signed: 06/26/2017 02:13 PM Electronically Signed By:JUAN CARLOS Tobias Case Management Discharge Plan Note Case Management Discharge Discharge Order Complete? Answers: Yes Patient to Obtain Answers: via Family Medications Transportation Arranged Answers: Other Notes: [facility] will Pick (Date 06/27/2017 03:30 PM & Time) MICHI Complete Answers: No Case Management Transport Answers: Yes Form Complete Faxed Final Orders Answers: Yes Agency/Facility Transfer Answers: Yes Report Printed & Faxed to Receiving Agency Family Notified Answers: Yes Discharge Comments Notes: CM met w/ pt for dispo planning. Pt and daughter has selected [facility]. [facility]. Pt is being discharged today. D/C orders sent to [facility]. provided phone number to KIKI Santana to give report. CM available for changes. Plan: [facility] Date Signed: 06/27/2017 11:51 AM Electronically Signed By:JUAN CARLOS Tobias [facility] Progress Note CM Note CM Note Notes: D/C postponed until tomorrow ideally. [facility]. CM notified KIKI vo and MD. CM to follow. Plan: [facility] Date Signed: 06/27/2017 04:49 PM Electronically Signed By:JUAN CARLOS Tobias [facility] JULIO Progress Note CM Note CM Note Notes: CM met w/ pt and daughter for dispo planning. Both daughter and pt agree that it is not necessary to go to SNF at this time. Pt reports that her diarrhea has resolved itself. Pt plans on returning back to [facility]. Daughter will transport pt back home. CM called [facility] to notify them that pt no longer needs rehab. CM available for changes. Plan: Independent Date Signed: 06/28/2017 11:58 AM Electronically Signed By:JUAN CARLOS Tobias [facility] CM Progress Note CM Note CM Note Notes: PT is recommending HC. Pt is agreeable to having HC. [facility] been [facility] to [facility] HC agency and they are able to accept pt. CM sent d/c orders to [facility]. CM to follow. Plan: HC; PT Date Signed: 06/28/2017 03:11 PM Electronically Signed By:JUAN CARLOS Tobias Intervention Information Intervention Type:*IM-Signed Date of Service:06/27/2017 11:04 AM Patient Type:Inpatient Staff Member:Lida Persaud Hours: Discipline: Severity: Comment:
== END 2017-06-28 13:35 | disposition home health service (06) | DRG 392 ==
LOC: F3E 12:36
PROVIDERS: ADMIT Hospitalist; ATTEND Hospitalist
DX: R19.7 Diarrhea, unspecified (principal); K92.2 Gastrointestinal hemorrhage, unspecified; C15.9 Malignant neoplasm of esophagus, unspecified; R05 Cough; D64.9 Anemia, unspecified; E03.9 Hypothyroidism, unspecified; I10 Essential (primary) hypertension; F31.9 Bipolar disorder, unspecified; J45.909 Unspecified asthma, uncomplicated; Z92.3 Personal history of irradiation; Z86.718 Personal history of other venous thrombosis and embolism; Z86.711 Personal history of pulmonary embolism; Z79.01 Long term (current) use of anticoagulants
CPT/HCPCS: 97110-GP; 97116-GP; 97162-GP; 97165-GO; 97530-GO; 97535-GO; G8978-GP-CI; G8979-GP-CI; G8987-GO-CI; G8988-GO-CH

== ENCOUNTER → 2017-07-26 | Outpatient (CLI) | payer OTHER | LOC: FIMAGING 17:07 | PROVIDERS: ATTEND Nurse Practitioner | DX: J98.4 Other disorders of lung (principal) ==

== ENCOUNTER 2017-07-28 16:14 | Inpatient (IN) | payer OTHER ==
[2017-07-28] MEDS ORDERED: ACETAMINOPHEN 325 MG TAB PO PRN (18:01)
[2017-07-28] MEDS ORDERED: ONDANSETRON 4 MG/2 ML VIAL IVP PRN (18:01)
--- NOTE | 2017-07-28 19:33 | GHP ---
[f rep st] HISTORY AND PHYSICAL DATE OF ADMISSION: 07/28/2017 CHIEF COMPLAINT: Weakness and nausea. HISTORY OF PRESENT ILLNESS: This is an 87-year-old female with a history of esophageal cancer, activ livier receiving chemotherapy, who presents 1 week post her most recent chemotherapy with complaints of fatigue, anorexia, nausea, and weight loss. The patient reports that she began having worsening naus ea with consumption of food and liquids 2 days after her last chemotherapy treatment and has been so severe that she is no longer attempting to take food because she is so confident she will throw it up . The patient denies any abdominal pain. Has had some diarrhea which is described as nonbloody. De nies any dysuria or hematuria. She does have chronic urinary incontinence. Denies any subjective fe vers or chills. Has so little energy she can barely do anything and reports that she has lost approx imately 6 pounds in the last week. Denies shortness of breath, but has had a cough which is being de scribed by loved ones as inconsistent at night and worsening over the course of the last 72 hours. S he was seen by an outpatient provider and started on a Z-Rome, which she is actively completing. PAST MEDICAL HISTORY: 1. Esophageal carcinoma, receiving chemotherapy. 2. History of pulmonary embolism, on Xarelto anticoagulation. 3. History of an upper gastrointestinal bleed status post esophageal stenting. 4. Asthma. 5. Hypertension. 6. Bipolar disorder. SOCIAL HISTORY: Patient lives in independent living. Drinks a glass of wine with dinner at night. Denies tobacco, illicit drugs, or marijuana. FAMILY HISTORY: Negative for bipolar disorder. ADVANCED DIRECTIVES: The patient wishes to be full COR, full tube. REVIEW OF SYSTEMS: A 10-point review of systems is negative with the exception of that reported in t he HPI. PHYSICAL EXAMINATION: VITAL SIGNS: Blood pressure 121/78, heart rate 70, respiratory rate 17, 94% o n room air, 36.8. GENERAL: This is a cachectic-appearing female in no acute distress. HEENT: Nota ble for dry mucous membranes. Eye exam is negative for any icterus. CARDIAC: The patient is regula r rate and rhythm. A systolic murmur is appreciated. PULMONARY: Good respiratory effort, is clear to auscultation bilaterally. No wheezing or rhonchi are appreciated. GASTROINTESTINAL: The patient is thin, has positive bowel sounds, is nontender to palpation. MUSCULOSKELETAL: Negative for any lo wer extremity edema. SKIN: Negative for any rashes. NEUROLOGIC: She is alert and oriented x3. PS YCHIATRIC: She appears sad and tearful on my interview and examination. DATA: Chest x-ray, which I personally reviewed and interpreted, shows left lower lobe consolidation which is unchanged from imaging previous. LABORATORY: White count 5.5, hematocrit 34.7, platelets of 406. Creatinine is 0.9, sodium 139. ASSESSMENT AND PLAN: This is an 87-year-old female receiving chemotherapy for esophageal cancer, pre senting with weakness and anorexia. 1. Weakness. I suspect this is multifactorial, side effects of her chemotherapy as well as poor nut rition. We will fluid resuscitate the patient and encourage p.o. as best we can during this hospital stay. Goals of care clearly need to be reviewed with the patient and the Oncology team for the bene fits of ongoing chemotherapy. 2. Nausea, vomiting. Will treat aggressively with IV antiemetics, encouraging nutritional intake. 3. Cough. As I review the chart, the patient has had a chronic cough for months. However, the desc ription sounds as if it is more wet and persistent. We will send a respiratory viral PCR as well as sputum cultures and complete the azithromycin patient is actively taking in the outpatient setting. I do not think there is an indication for additional imaging at this time. Will continue following h er clinical progress. We will consult the speech therapist to evaluate and rule out aspiration as a contributor to this complaint. 4. Esophageal cancer. The patient is actively receiving chemotherapy and followed closely by [facility]. Family has requested palliative care consult and more in-depth conversations about goals of care wit h her cancer moving forward. 5. Severe protein-calorie malnutrition. Patient has lost marked weight in the preceding weeks. Aga in, will consult dietary, work on nourishments and treatment of her likely chemotherapy related nause a in hopes of improving her caloric intake. DIET: As she can tolerate. PROPHYLAXIS: Her home dosing of Xarelto. DISPOSITION: I expect greater than 2 midnights as the patient's complaints are complicated, multifac torial at age 87 and work needs to be done to optimize her physiologic parameters and counseling for goals of care. I have discussed the case with the floor RN. Patient has requested to be full COR at this time. We will honor this request and again consult palliative care team for further discussion s about goals of care. /[id number]/MODL
[2017-07-28] MEDS: PANTOPRAZOLE SODIUM 40 MG TAB PO SCH (22:23)
[2017-07-28] MEDS: LITHIUM CARBONATE 300 MG TAB PO SCH (22:24)
[2017-07-28] MEDS: traZODone 100 MG TAB PO SCH (22:24)
[2017-07-28] MEDS: AZITHROMYCIN 250 MG TAB PO SCH (22:24)
[2017-07-28] MEDS: QUEtiapine FUMARATE 300 MG TAB PO SCH (22:24)
[2017-07-28] MEDS: GUAIFENESIN/DM 10 ML UDCUP PO PRN (22:31)
[2017-07-28] MEDS: FLUTICASONE/SALMETER 250/50MCG DISKUS IH SCH (22:31)
[2017-07-29] MEDS: NS 1,000 ML IV SCH ×2 (00:46→10:52)
[2017-07-29] MEDS: LEVOTHYROXINE 125 MCG TAB PO SCH (05:20)
[2017-07-29 05:48] LABS: PLATELET COUNT 333 10^3/uL (150-400)
[2017-07-29] MEDS: FLUTICASONE/SALMETER 250/50MCG DISKUS IH SCH ×2 (08:03→18:10)
[2017-07-29] MEDS: PANTOPRAZOLE SODIUM 40 MG TAB PO SCH ×2 (08:34→18:08)
[2017-07-29] MEDS: ONDANSETRON DISINTEGRATING 4 MG TAB PO PRN ×3 (08:35→16:53)
[2017-07-29] MEDS: GUAIFENESIN/DM 10 ML UDCUP PO PRN ×2 (08:56→19:39)
[2017-07-29] MEDS: AZITHROMYCIN 250 MG TAB PO SCH (10:56)
--- NOTE | 2017-07-29 11:07 | HOSPPROG ---
Hospitalist Progress Note Assessment/Plan: # intractable N/V - suspect d/t esophageal obstruction, actually tolerated breakfast - GI consult today - options discussed with patient # esophageal cancer s/p multiple dilations with stent placed 05/2017 - last chemo 1 week - palliative care consult today # cough, LLL consolidation - suspect d/t aspiration pna in setting of obstructive esophageal mass - check CT - start moxifloxacin, stop azith # bipolar - cont lithium, seroquel # weakness - likely d/t poor PO intake - PT/OT Subjective: ate breakfast and kept it down today after zofran Objective: Vital Signs Temp Pulse Resp BP Pulse Ox 36.4 C 79 14 95/77 L 91 L 07/29/17 08:49 07/29/17 08:49 07/29/17 08:49 07/29/17 08:49 07/29/17 08:49 Microbiology 07/28/17 21:17 - Final Sputum, Expectorated 07/28/17 19:55 Respiratory Panel (PCR) - Final Nasal, Sinus - Swab No Organism Detected Laboratory Results 07/29/17 05:18 07/29/17 05:18 07/28/17 07/29/17 07/30/17 05:59 05:59 05:59 Intake Total 597 Balance 597 - Physical Exam Constitutional: no apparent distress, appears nourished Cardiovascular: regular rate and rhythym, no murmur, rub, or gallop, systolic murmur Respiratory: no respiratory distress, no rales or rhonchi, clear to auscultation Gastrointestinal: normoactive bowel sounds, soft, non-tender abdomen ICD10 Worksheet Patient Problems: Problems Problem Status Onset Deep venous thrombosis Active Diarrhea Acute Upper GI bleed Acute
[2017-07-29] MEDS: MOXIFLOXACIN 400 MG TAB PO SCH (12:11)
--- NOTE | 2017-07-29 12:29 | ASMTCMCOM ---
CM Note CM Note Notes: Pt in current treatment for gastric ca admitted for nausea, weakness and cough. Pt lives at [facility] and has [facility] and [facility] for RN and PT. Palliative recommended for goals of care. Rama Cao and this Sw met with pt and dtr Kenzie. Pt was feeling overwhelmed and not ready to discuss goals or any change to DC plan. She did state she would like to feel better and get back to [place] where she regularly plays bridge. Recommended as one option [facility] palliative care for symptom mgmt once she is back home. Moving to SNF at [place] is another option. Pt wanted to meet with oncologist before having any further discussions. CM to follow. Date Signed: 07/29/2017 12:28 PM Electronically Signed By:Alexandra Fox LCSW
--- NOTE | 2017-07-29 12:40 | PDPCPN ---
Palliative Care Progress Note Assessment/Plan: Referring provider: Dr Brand Reason for consult: Complex medical decision making Symptom control HPI: Sue Menchaca is a 87 yo with PMH locally advanced esophageal cancer dx [address] Graham, remote PE, HTn, bipolar, and recent UGIB admitted to the hospital for increasing fatigue, weakness and poor appetite. Recent chemo 1 week prior with ongoing nausea and vomiting leading to dehydration and fatigue/weakness. Palliative care consulted for symptom management and complex medical decision making. Met with Sue and her daughter at the bedside this morning. Sue stated she is feeling better today with improved appetite after receiving zofran prior to breakfast. She was able to eat half of her tray. Discussed her goals which are to feel good so she can do the things she enjoys. She has been more isolated due to her nausea and subsequent weakness. She likes to be social with her friends at her long term building. Hayley feels the symptom burden is now outweighing any benefit of her current chemo. They have an appointment with Dr Graham next week to discuss if there are other regimens that might be of benefit. Discussed code status and while Sue states she does not want any extra ordinary measures including CPR which would lead to a poorer quality of life, she is very overwhelmed with her situation and symptoms that she needs more time to think about being DNR. Assessment: Physical: - Cough: - on guaifenesin PRn- helping - speech consult - Nausea/vomiting: - recommend scheduling zofran ACHS as appears to be helping - can also use very small doses of ativan if needed as some component of anticipatory nausea. - weakness - PT/Ot as able Emotional/psychological: Well supported by friends and daughter. Hx of bipolar: - sees psychologist as outpt - on seroquel, lithium, and trazadone Advanced Care Planning: Is patient decisional?: Yes Code Status: Full- but would not want extra ordinary measures. POA: Daughter hayley is MDPOA Plan: She is feeling overwhelmed with information and feeling poorly. For now her goal is to feel better and potentially hear from oncology as to other treatments that may benefit her without a large symptom burden. Current chemo regimen has more symptom burden than benefit for her. Discussed possible outpt palliative care at discharge depending on if further chemo treatment is planned. 07/29/17 12:40 Subjective: I was able to eat breakfast Objective: Social History: Lives at [facility] in independent living. Daughter Hayley involved and local. Enjoys playing bridge and being social with her friends. Medication list reviewed ROS: General: fatigue, weakness, weight loss ENT: dysphagia Resp: cough GI: poor appetite, nausea : negative MS: negative Skin: negative Neuro: negative Psych: negative Functional assessment: PPS: 50% Functional status: needs assistance with ADLs. Vital Signs Temp Pulse Resp BP Pulse Ox 36.5 C 76 16 108/68 94 07/29/17 12:00 07/29/17 12:00 07/29/17 12:00 07/29/17 12:00 07/29/17 12:00 Microbiology 07/28/17 21:17 - Final Sputum, Expectorated 07/28/17 19:55 Respiratory Panel (PCR) - Final Nasal, Sinus - Swab No Organism Detected Laboratory Results 07/29/17 05:18 07/29/17 05:18 07/28/17 07/29/17 07/30/17 05:59 05:59 05:59 Intake Total 597 Balance 597 Physical Exam - Physical Exam General Appearance: alert, no apparent distress Respiratory: No respiratory distress, No accessory muscle use Skin: normal color, warm/dry Extremities: No pedal edema Neuro/Psych: alert, oriented x 3 ICD10 Worksheet Patient Problems: Problems Problem Status Onset Palliative care encounter Acute Deep venous thrombosis Active Diarrhea Acute Upper GI bleed Acute - ICD10 Problem Qualifiers (1) Palliative care encounter
[2017-07-29] MEDS ORDERED: IOPAMIDOL (ISOVUE-300) 100 ML BTL ONE (14:25)
--- NOTE | 2017-07-29 14:56 | PDMN ---
Medical Necessity Medical necessity: est los>2mn for weakness, multifactorial, r/t side effects of chemo, and poor nutrition, N/V, cough, r/o viral cause: admit for IVF, IV antiemetics, ST to r/o aspiration, and palliative consult to determine goals of care; comorbid esophageal CA, severe protein-calorie malnutrition, advanced age , htn, asthma, bipolar, and hx PE and GIB; per order and H&P 07/28/17
--- NOTE | 2017-07-29 17:52 | GCON ---
[f rep st] CONSULTATION MEDICAL ONCOLOGY FOLLOWUP CONSULTATION DATE OF CONSULTATION: 07/29/2017 REFERRING PHYSICIAN: Jeffy Brand MD REASON FOR CONSULTATION: Ongoing management of esophageal carcinoma. RECOMMENDATIONS: 1. Agree with GI consultation as you are doing. 2. Agree with hydration. 3. Agree with trying to advance diet. 4. History of pulmonary embolism. The patient has been on Xarelto, which I would continue unless a surgical procedure or endoscopy is anticipated. Therefore, I would wait for the GI consultation befo re deciding on restarting her Xarelto. 5. The patient has had a history of gastrointestinal bleeding after esophageal stenting. We will ne ed to monitor carefully for additional bleeding. ASSESSMENT: This 87-year-old woman was admitted with weakness and nausea. She has a history of esop hageal carcinoma. Her primary oncologist is my partner, Dr. Amol Graham. She was diagnosed with her esophageal carcinoma in December of 2015. At that time, she had stage IIB disease. She was initiall y treated with carboplatin and paclitaxel in addition to radiation. She had a complete response at t hat time. Unfortunately, she now has evidence of progressive disease with metastases in the mediasti num. She is on therapy currently with ramucirumab and paclitaxel. Her last dose of chemotherapy was on the 07/20/2017. The dose that was due yesterday was held in lieu of her admission. She is currently feeling better today. She has been eating solid food for breakfast. She will be henderson ving a palliative care consultation later on today, in addition to GI evaluation to see if there is a ny additional evaluation that needs to be done as far as her patency of her esophagus is concerned. For history of the present illness, please see assessment. PAST MEDICAL HISTORY: Otherwise, is remarkable for bipolar disorder. She also has a history of hypo thyroidism and hypertension. FAMILY HISTORY: Remarkable for her mother having had lymphoma in her 90s. Her father of compli cations of COPD. SOCIAL HISTORY: She does not smoke, but she does drink 1 glass of wine per day. She is currently in independent living at [place]. REVIEW OF SYSTEMS: Remarkable for nausea, decreased oral intake, and feeling overwhelmed in general. She currently reports no bleeding. Her 10 system review is, otherwise, unremarkable. PHYSICAL EXAMINATION: GENERAL: A well-developed woman in no acute distress, sitting up eating solid food for lunch. LUNGS: No rales or rhonchi, but she does have diminished breath sounds bilaterally . CARDIAC: A regular rhythm at this time. ABDOMEN: She has normal bowel sounds. No tenderness. LABORATORY EXAM: White count of 3.95, with a hemoglobin of 9.8, and a platelet count of 333,000. He r chemistries show a normal creatinine of 0.8, with potassium of 3.9, and calcium of 8.1. Thank you very much for allowing us to participate this woman's oncologic care. We look forward to a ssisting you with her management during this hospitalization and beyond. /[id number]/MODL
[2017-07-29] MEDS: LITHIUM CARBONATE 300 MG TAB PO SCH (18:07)
[2017-07-29] MEDS: ENOXAPARIN 60 MG/0.6 ML SYR SC SCH (18:07)
[2017-07-29] MEDS: traZODone 100 MG TAB PO SCH (18:09)
[2017-07-29] MEDS: QUEtiapine FUMARATE 300 MG TAB PO SCH (18:09)
--- NOTE | 2017-07-29 21:03 | GCON ---
[f rep st] CONSULTATION DATE OF CONSULTATION: 07/29/2017 REFERRING PHYSICIAN: Jeffy Brand MD CHIEF COMPLAINT: Nausea. HISTORY OF PRESENT ILLNESS: I am asked to see this patient in consultation by Dr. Brand for chief complaint of nausea. The patient is a complex 87-year-old with history of gastric cancer at the GE j unction diagnosed in December of 2015, followed by Dr. Troncoso who has done serial dilations and then has pu t a stent across the esophageal tumor in May 2017. The patient has been receiving treatment wit Oncology and for the past few days has been noting nausea, not wanting to eat, feeling that "she wo uld throw up if she tried to eat." However, she was given Zofran here in the hospital and now signif icantly better. She was able to tolerate both breakfast and lunch. She denies any dysphagia or sens ation of food sticking, but per daughter does occasionally cough up or regurgitate food when eating. She has had few bowel movements, had a small bowel movement yesterday, but no bright red blood. The daughter and the patient state that the stools have been somewhat dark. No hematemesis. The patient was on Xarelto, but they tell me this was stopped in June. ALLERGIES: Codeine and penicillin. MEDICATIONS: Medicines on admission were inhaler, Seroquel, Taxol, Z-Rome, trazodone, omeprazole, lit hium, and Synthroid. PAST MEDICAL HISTORY: Esophageal cancer at the GE junction. History of pulmonary embolism. Upper G I bleed in the past, asthma, hypertension, bipolar disease. FAMILY HISTORY: Negative for GI malignancies. SOCIAL HISTORY: Lives independently. Drinks a glass of wine at night. REVIEW OF SYSTEMS: I performed a complete review of systems which was negative except for the pertin ent positives and negatives noted above in the history of present illness. PHYSICAL EXAMINATION: VITAL SIGNS: Afebrile at 36.5, BP 108/68, pulse 76. CONSTITUTIONAL: She is alert and oriented. EYES: No scleral icterus. HEENT: No oral lesions. CARDIOVASCULAR: Regular ra te and rhythm. CHEST: Clear to auscultation. ABDOMEN: Soft, nontender. NEUROLOGIC: Was nonfocal . SKIN: No lesions. Hematocrit is 29.4, white count of 3. ASSESSMENT: Patient with esophageal cancer, status post stent with recent nausea, but no true dyspha robyn and her symptoms seem to have improved with Zofran. This may be multifactorial in part from unde rlying chemotherapy. She may also have some reocclusion of her stent, but was able to tolerate lunch and breakfast today. Also patient with some dark stools, but without signs of active GI bleeding. It is possible, however, she may be having some oozing from her tumor. Traditionally these are very difficult to treat endoscopically. At this point, not hemodynamically significant. PLAN: I have discussed with the patient and her daughter at length about possible upper endoscopy, b ut as she is doing better we will hold on this for now. Treat with medicines for her nausea with Zof ran. Monitor H and H and will recheck on the patient tomorrow. Could consider repeat upper endoscop y if symptoms should worsen. Thank you for this consult. /[id number]/MODL
[2017-07-30] MEDS: LEVOTHYROXINE 125 MCG TAB PO SCH (05:49)
[2017-07-30] MEDS: FLUTICASONE/SALMETER 250/50MCG DISKUS IH SCH ×2 (07:59→20:04)
[2017-07-30] MEDS: MOXIFLOXACIN 400 MG TAB PO SCH (09:26)
[2017-07-30] MEDS: GUAIFENESIN/DM 10 ML UDCUP PO PRN (09:26)
[2017-07-30] MEDS: PANTOPRAZOLE SODIUM 40 MG TAB PO SCH ×2 (09:28→20:02)
[2017-07-30] MEDS: ENOXAPARIN 60 MG/0.6 ML SYR SC SCH ×2 (09:28→20:05)
[2017-07-30] MEDS ORDERED: LORazepam 0.5 MG TAB PO PRN (10:00)
[2017-07-30] MEDS ORDERED: POLYETHYLENE GLYCOL 3350 17 GM PKT PO PRN (10:01)
[2017-07-30] MEDS ORDERED: LACTULOSE 20 GM/30 ML UDCUP PO PRN (10:01)
[2017-07-30] MEDS ORDERED: MAGNESIUM HYDROXIDE 30 ML UDCUP PO PRN (10:01)
[2017-07-30] MEDS ORDERED: BISACODYL 10 MG SUPP PR PRN (10:01)
--- NOTE | 2017-07-30 10:56 | SOAPPROG ---
SOAP Progress Note Assessment/Plan: Assessment/Plan: 87yo woman w metastatic esophageal ca admited w weakness and nausea; initial concern for obstruction but resokved w anti-emetics 1. Nausea and vomiting - supportive/conservative management appreciate GI consult IVF 2. Hx of PE - back on anticoagulation watching for bleeding given hx of GIB 3. Esophageal ca - stage IV on taxol + ramucirumab last 07/20/2017 s/p stenting previous chemo/XRT when stage IIB dz follow up w Dr Graham next week 4. LLL PNA - aspiration?; on abx 07/30/17 10:57 Subjective: doing well no acute events Objective: Vital Signs Temp Pulse Resp BP Pulse Ox 36.6 C 81 17 119/67 91 L 07/30/17 07:19 07/30/17 07:19 07/30/17 07:19 07/30/17 07:19 07/30/17 07:19 Microbiology 07/28/17 21:17 - Final Sputum, Expectorated 07/28/17 19:55 Respiratory Panel (PCR) - Final Nasal, Sinus - Swab No Organism Detected Laboratory Results 07/30/17 04:41 07/29/17 05:18 07/29/17 07/30/17 07/31/17 05:59 05:59 05:59 Intake Total 597 1158 Output Total 300 Balance 597 858 Gen- elderly, NAD HEENT - anicteric, pale conjunctiva CV - RRR Resp - crackles at bases Abd - soft, NT ext - mild edema LLE Neuro - nonfocal ICD10 Worksheet Patient Problems: Problems Problem Status Onset Palliative care encounter Acute Deep venous thrombosis Active Diarrhea Acute Upper GI bleed Acute
[2017-07-30] MEDS: ONDANSETRON DISINTEGRATING 4 MG TAB PO SCH ×3 (11:29→20:03)
[2017-07-30] MEDS ORDERED: LORazepam 0.5 MG TAB PO SCH (11:30)
--- NOTE | 2017-07-30 12:21 | SOAPPROG ---
SOAP Progress Note Assessment/Plan: Assessment:Plan: 1) esoph cancer s/p stent - able to tolerate PO so not occluded 2) n/v - improved with anti-nausea meds 3) possible pneumonia - as per hospitalists pt doing better will sign off recall if needed thank you 07/30/17 12:18 Subjective: cc- n/v, s/p stent for esoph ca doing better, has cough no n/v, tolerating po Objective: Vital Signs Temp Pulse Resp BP Pulse Ox 37.0 C 71 17 120/65 91 L 07/30/17 11:27 07/30/17 11:27 07/30/17 11:27 07/30/17 11:27 07/30/17 11:27 Microbiology 07/28/17 21:17 - Final Sputum, Expectorated 07/28/17 19:55 Respiratory Panel (PCR) - Final Nasal, Sinus - Swab No Organism Detected Laboratory Results 07/30/17 04:41 07/29/17 05:18 07/29/17 07/30/17 07/31/17 05:59 05:59 05:59 Intake Total 597 1158 Output Total 300 Balance 597 858 CTA, I do not appreciate any egophony S1S Laboratory Tests 07/29/17 07/30/17 05:18 04:41 Hgb 9.8 L 9.4 L Hct 29.4 L 28.7 L 2 +BS, soft nt ICD10 Worksheet Patient Problems: Problems Problem Status Onset Palliative care encounter Acute Deep venous thrombosis Active Diarrhea Acute Upper GI bleed Acute
--- NOTE | 2017-07-30 12:46 | HOSPPROG ---
Hospitalist Progress Note Assessment/Plan: # intractable N/V - actually tolerating PO now; consider obstruction but resolved? # PE - on lovenox; follow very closely given recent GIB # esophageal cancer s/p multiple dilations with stent placed 05/2017 - last chemo 1 week - appreciate palliative care c/s # suspected aspiration pna - cont moxifloxacin, cough suppressant # bipolar - cont lithium (check level), seroquel # weakness - likely d/t poor PO intake - PT/OT - will need SNF likely Subjective: still tolerating PO Objective: Vital Signs Temp Pulse Resp BP Pulse Ox 37.0 C 71 17 120/65 91 L 07/30/17 11:27 07/30/17 11:27 07/30/17 11:27 07/30/17 11:27 07/30/17 11:27 Microbiology 07/28/17 21:17 - Final Sputum, Expectorated 07/28/17 19:55 Respiratory Panel (PCR) - Final Nasal, Sinus - Swab No Organism Detected Laboratory Results 07/30/17 04:41 07/29/17 05:18 07/29/17 07/30/17 07/31/17 05:59 05:59 05:59 Intake Total 597 1158 Output Total 300 Balance 597 858 high risk on AC with recent GIB - Physical Exam Constitutional: no apparent distress, appears nourished Cardiovascular: regular rate and rhythym, no murmur, rub, or gallop Respiratory: no respiratory distress, no rales or rhonchi, clear to auscultation Gastrointestinal: normoactive bowel sounds, soft, non-tender abdomen ICD10 Worksheet Patient Problems: Problems Problem Status Onset Deep venous thrombosis Active Diarrhea Acute Upper GI bleed Acute Palliative care encounter Acute
[2017-07-30] MEDS: HYDROcodone/CPM TUSSIONEX 5 ML UDSYR PO SCH (19:58)
[2017-07-30] MEDS: SENNOSIDES/DOCUSATE SODIUM TAB PO SCH (20:00)
[2017-07-30] MEDS: LITHIUM CARBONATE 300 MG TAB PO SCH (20:01)
[2017-07-30] MEDS: traZODone 100 MG TAB PO SCH (20:03)
[2017-07-30] MEDS: QUEtiapine FUMARATE 300 MG TAB PO SCH (20:05)
[2017-07-31] MEDS: LEVOTHYROXINE 125 MCG TAB PO SCH (06:20)
[2017-07-31] MEDS: ONDANSETRON DISINTEGRATING 4 MG TAB PO SCH ×4 (08:28→19:52)
[2017-07-31] MEDS: PANTOPRAZOLE SODIUM 40 MG TAB PO SCH ×2 (08:28→19:51)
[2017-07-31] MEDS: SENNOSIDES/DOCUSATE SODIUM TAB PO SCH ×2 (08:28→19:50)
[2017-07-31] MEDS: MOXIFLOXACIN 400 MG TAB PO SCH (08:28)
[2017-07-31] MEDS: FLUTICASONE/SALMETER 250/50MCG DISKUS IH SCH ×2 (08:29→19:40)
[2017-07-31] MEDS: ENOXAPARIN 60 MG/0.6 ML SYR SC SCH ×2 (08:29→19:49)
--- NOTE | 2017-07-31 10:21 | SOAPPROG ---
SOAP Progress Note Assessment/Plan: Assessment/Plan: 87yo woman w metastatic esophageal ca admited w weakness and nausea; initial concern for obstruction but resolved w anti-emetics 1. Nausea and vomiting - much improved supportive/conservative management appreciate GI consult IVF 2. Hx of PE - back on anticoagulation watching for bleeding given hx of GIB but so far no issues 3. Esophageal ca - stage IV on taxol + ramucirumab last 07/20/2017 s/p stenting previous chemo/XRT when stage IIB dz follow up w Dr Graham next week 4. LLL PNA - aspiration?; on moxifloxacin DC to SNF today or tomorrow 07/30/17 10:57 07/31/17 10:19 Subjective: No acute events slept well no coughing or SOB Objective: Vital Signs Temp Pulse Resp BP Pulse Ox 36.6 C 72 16 107/51 L 92 07/31/17 08:25 07/31/17 08:25 07/31/17 08:25 07/31/17 08:25 07/31/17 08:25 Microbiology 07/28/17 21:17 - Final Sputum, Expectorated Laboratory Results 07/30/17 04:41 07/31/17 04:52 07/30/17 07/31/17 08/01/17 05:59 05:59 05:59 Intake Total 1158 440 Output Total 300 350 Balance 858 90 Gen - elderly woman, NAD HEENT - anicteric CV - RRR Chest - clear anteriorly Abd - soft, B+, nontender Ext - no edema ICD10 Worksheet Patient Problems: Problems Problem Status Onset Palliative care encounter Acute Deep venous thrombosis Active Diarrhea Acute Upper GI bleed Acute
[2017-07-31 13:03] LABS: PLATELET COUNT 351 10^3/uL (150-400)
--- NOTE | 2017-07-31 14:19 | HOSPPROG ---
Hospitalist Progress Note Assessment/Plan: # intractable N/V - actually tolerating PO now; consider obstruction but resolved? - cont zofran prior to meals # PE - on lovenox; follow very closely given recent GIB - discussed with Dr Aragon; would plan for lovenox for now rather than restart xarelto # esophageal cancer s/p multiple dilations with stent placed 05/2017 - last chemo 1 week - appreciate palliative care c/s # suspected aspiration pna - cont moxifloxacin, cough suppressant - elevate head to 30 degrees # bipolar - cont lithium (check level), seroquel # weakness - likely d/t poor PO intake - PT/OT - will need SNF likely # dispo - likely to SNF tomorrow; CM to see today Subjective: slept well at 30 degrees last night Objective: Vital Signs Temp Pulse Resp BP Pulse Ox 36.4 C 74 17 128/81 H 93 07/31/17 11:24 07/31/17 11:24 07/31/17 11:24 07/31/17 11:24 07/31/17 11:24 Microbiology 07/28/17 21:17 - Final Sputum, Expectorated Laboratory Results 07/31/17 12:56 07/31/17 04:52 07/30/17 07/31/17 08/01/17 05:59 05:59 05:59 Intake Total 1158 440 Output Total 300 350 Balance 858 90 - Physical Exam Constitutional: no apparent distress Eyes: anicteric sclera Ears, Nose, Mouth, Throat: hearing normal Cardiovascular: No edema Respiratory: no respiratory distress Gastrointestinal: No distension Genitourinary: No riggs in urethra Skin: warm Musculoskeletal: No generalized weakness Neurologic: AAOx3 Psychiatric: not anxious ICD10 Worksheet Patient Problems: Problems Problem Status Onset Deep venous thrombosis Active Diarrhea Acute Upper GI bleed Acute Palliative care encounter Acute
--- NOTE | 2017-07-31 14:39 | ASMTCMCOM ---
CM Note CM Note Notes: 07/31/[address]. Brand's request met w/pt and daughter Kenzie [phone] to discuss need for SNF rehab. Please call Kenzie with d/c plan. Pt prefers [facility] or [facility] rehab only focused facilities. [facility] is third choice. [facility] is fourth choice. Pt insurance is Medicare Part B and [employer]. Informed pt that insurance authorization will be important part in choosing a facility. Pt aware that [facility] is private pay, she currently lives at [facility]. Case Management d/c poc: to SNF rehab pending acceptance and auth from insurance. Case Management to follow. Date Signed: 07/31/2017 02:38 PM Electronically Signed By:Alissa Aaron RN
[2017-07-31] MEDS: HYDROcodone/CPM TUSSIONEX 5 ML UDSYR PO SCH (19:49)
[2017-07-31] MEDS: LITHIUM CARBONATE 300 MG TAB PO SCH (19:50)
[2017-07-31] MEDS: traZODone 100 MG TAB PO SCH (19:50)
[2017-07-31] MEDS: QUEtiapine FUMARATE 300 MG TAB PO SCH (19:51)
[2017-08-01] MEDS: LEVOTHYROXINE 125 MCG TAB PO SCH (05:11)
[2017-08-01] MEDS: ENOXAPARIN 60 MG/0.6 ML SYR SC SCH ×2 (07:31→19:59)
[2017-08-01] MEDS: ONDANSETRON DISINTEGRATING 4 MG TAB PO SCH ×5 (07:32→20:03)
[2017-08-01] MEDS: SENNOSIDES/DOCUSATE SODIUM TAB PO SCH ×2 (07:32→20:11)
[2017-08-01] MEDS: PANTOPRAZOLE SODIUM 40 MG TAB PO SCH ×2 (07:32→19:59)
[2017-08-01] MEDS: MOXIFLOXACIN 400 MG TAB PO SCH (07:32)
[2017-08-01] MEDS: FLUTICASONE/SALMETER 250/50MCG DISKUS IH SCH ×2 (07:34→19:45)
--- NOTE | 2017-08-01 09:11 | HOSPPROG ---
Hospitalist Progress Note Assessment/Plan: # intractable N/V - resolved, tolerating PO now - cont zofran prior to meals # PE - on lovenox; follow very closely given recent GIB - will cont lovenox rather than xarelto # esophageal cancer s/p multiple dilations with stent placed 05/2017 - last chemo 1 week - appreciate palliative care c/s # suspected aspiration pna - cont moxifloxacin day 10/15, cough suppressant. Satting mid 90's on room air - elevate head to 30 degrees # bipolar - cont lithium (check level), seroquel # weakness - likely d/t poor PO intake - PT/OT - will need SNF likely # constipation - bowel regimen # dispo - waiting SNF placement, CM working on dispo Subjective: Pt feels fine. Still with a wet cough, but denies CP or SOB. No N/ V or abdominal pain. Last BM 4 days ago. No fevers. Wishes to dc to SNF today. Objective: Vital Signs Temp Pulse Resp BP Pulse Ox 36.3 C 63 12 120/65 95 08/01/17 07:48 08/01/17 07:48 08/01/17 07:48 08/01/17 07:48 08/01/17 07:48 Microbiology 07/28/17 21:17 - Final Sputum, Expectorated Sputum Culture - Final Maria Luisa Albicans Laboratory Results 08/01/17 04:52 07/31/17 04:52 07/31/17 08/01/17 08/02/17 05:59 05:59 05:59 Intake Total 440 950 Output Total 350 Balance 90 950 - Physical Exam Constitutional: no apparent distress Eyes: PERRL Ears, Nose, Mouth, Throat: moist mucous membranes Cardiovascular: regular rate and rhythym Respiratory: no respiratory distress, bronchial breath sounds Gastrointestinal: normoactive bowel sounds, soft, non-tender abdomen Skin: warm Musculoskeletal: generalized weakness Neurologic: AAOx3 Psychiatric: interacting appropriately ICD10 Worksheet Patient Problems: Problems Problem Status Onset Palliative care encounter Acute Deep venous thrombosis Active Diarrhea Acute Upper GI bleed Acute
--- NOTE | 2017-08-01 15:23 | PDPCPN ---
Palliative Care Progress Note Assessment/Plan: HPI: Sue Menchaca is a 87 yo with PMH locally advanced esophageal cancer dx [address] Graham, remote PE, HTn, bipolar, and recent UGIB admitted to the hospital for increasing fatigue, weakness and poor appetite. Recent chemo 1 week prior with ongoing nausea and vomiting leading to dehydration and fatigue/weakness. Palliative care consulted for symptom management and complex medical decision making. Sue seen this afternoon she states her nausea is much improved and able to eat at each meal. She also feels her strength and weakness have improved with her eating. She is looking forward to hearing more from oncology as to next plans or not. She understands there is risk vs benefit of all treatments and while she wants to continue with cancer treatment she also does not want a huge symptom burden that would detract from her quality of life. Assessment: Physical: - Cough: - on guaifenesin PRn- helping - speech consult - Nausea/vomiting: - on scheduled zofran - can also use very small doses of ativan if needed as some component of anticipatory nausea. - weakness - PT/Ot as able Emotional/psychological: Well supported by friends and daughter. Hx of bipolar: - sees psychologist as outpt - on seroquel, lithium, and trazadone Advanced Care Planning: Is patient decisional?: Yes Code Status: Full- but would not want extra ordinary measures. MD MORALES: Daughter hayley is MDPOA Plan: SNF/rehab at discharge, she has a follow up appointment with oncology on Tuesday to continue to discuss future oncology care. Subjective: I'm feeling better Objective: Vital Signs Temp Pulse Resp BP Pulse Ox 36.8 C 71 16 110/57 L 94 08/01/17 12:00 08/01/17 12:00 08/01/17 12:00 08/01/17 12:00 08/01/17 12:00 Microbiology 07/28/17 21:17 - Final Sputum, Expectorated Sputum Culture - Final Maria Luisa Albicans Laboratory Results 08/01/17 04:52 07/31/17 04:52 07/31/17 08/01/17 08/02/17 05:59 05:59 05:59 Intake Total 440 950 Output Total 350 Balance 90 950 Physical Exam - Physical Exam General Appearance: alert, no apparent distress Respiratory: No respiratory distress, No accessory muscle use Skin: normal color, warm/dry Extremities: No pedal edema Neuro/Psych: alert, oriented x 3 ICD10 Worksheet Patient Problems: Problems Problem Status Onset Palliative care encounter Acute Deep venous thrombosis Active Diarrhea Acute Upper GI bleed Acute - ICD10 Problem Qualifiers (1) Palliative care encounter
--- NOTE | 2017-08-01 15:58 | ASMTCMCOM ---
CM Note CM Note Notes: Met w/pt and daughter, Kenzie to discuss SNF placemnt/choice of facility. [facility] choice [facility]. [facility] 2nd choice. Spoke w/Caterina at [facility] and she will submit for auth from insurance; she wondered if pt would still be on chemo treatments at rehab; that is currently up in the air until their f/u appt w/Dr Reyes later this week; pt and her daughter seemed to think the MD's might want her to get stronger w/rehab before starting chemo again- shared this info w/Caterina. Caterina also said that pt will have co-pay until her deductable is met and she will come tomorrow to talk w/ pt about this. Updated therapy notes sent to [facility]. CM will follow. Date Signed: 08/01/2017 03:57 PM Electronically Signed By:Alexandria Kern RN
[2017-08-01] MEDS: QUEtiapine FUMARATE 300 MG TAB PO SCH (19:59)
[2017-08-01] MEDS: LITHIUM CARBONATE 300 MG TAB PO SCH (20:00)
[2017-08-01] MEDS: HYDROcodone/CPM TUSSIONEX 5 ML UDSYR PO SCH (20:00)
[2017-08-01] MEDS: traZODone 100 MG TAB PO SCH (20:00)
[2017-08-02] MEDS: LEVOTHYROXINE 125 MCG TAB PO SCH (06:31)
[2017-08-02] MEDS: MOXIFLOXACIN 400 MG TAB PO SCH (08:42)
[2017-08-02] MEDS: SENNOSIDES/DOCUSATE SODIUM TAB PO SCH ×2 (08:42→20:35)
[2017-08-02] MEDS: PANTOPRAZOLE SODIUM 40 MG TAB PO SCH ×2 (08:42→20:35)
[2017-08-02] MEDS: ENOXAPARIN 60 MG/0.6 ML SYR SC SCH ×2 (08:43→20:35)
[2017-08-02] MEDS: ONDANSETRON DISINTEGRATING 4 MG TAB PO SCH ×4 (08:43→20:34)
[2017-08-02] MEDS: FLUTICASONE/SALMETER 250/50MCG DISKUS IH SCH ×2 (09:05→20:11)
--- NOTE | 2017-08-02 13:47 | PDIAF ---
- Diagnosis Diagnosis: esophageal cancer Code Status: Full Code - Medication Management Discharge Medications: Medications to Continue on Transfer traZODone [traZODONE 50MG (*)] 100 mg PO HS 02/13/16 [Last Taken 07/27/17] Fluticasone/Salmeter 250/50Mcg [Advair 250/50 (*)] 1 puffs IH BID 06/22/17 [ Last Taken 07/28/17 09:00] [place] Carbonate [T[place] T[place] Carbonate Tab 300 mg (*)] 150 mg PO HS 06/22/17 [ Last Taken 07/27/17] Omeprazole [Prilosec 20 mg] 40 mg PO BID 06/22/17 [Last Taken 07/28/17] PACLitaxel [TaxoL] 0 mg IV WE 06/22/17 [Last Taken 07/20/17] QUEtiapine FUMARATE [Seroquel 300mg (*)] 300 mg PO HS 06/22/17 [Last Taken 07/27] AZITHROMYCIN [Z-PACK] 250 mg PO DAILY 07/28/17 [Last Taken 07/27/17] Levothyroxine [Synthroid 125 mcg (*)] 125 mcg PO DAILY06 07/28/17 [Last Taken ] Enoxaparin [Lovenox 60 MG (*)] 60 mg SC BID #60 syr 08/02/17 [Last Taken Unknown ] LORazepam [Ativan (*)] 0.5 mg PO HS PRN #30 tab 08/02/17 [Last Taken Unknown] Moxifloxacin [Avelox 400 mg (*)] 400 mg PO DAILY #2 tab 08/02/17 [Last Taken Unknown] Discharge Medications: Refer to the Discharge Home Medication list for PRN reason. PICC Care - Routine: N/A - Orders Services needed: Registered Nurse, Physical Therapy, Occupational Therapy Isolation Type: None Oxygen: 1-2 LPM Diet Recommendation: no restrictions on diet Diet Texture: Regular Texture Diet, Thin Liquids, Meds Whole w/Liquids - Follow Up Care Current Providers and Referrals: Rayray Raines MD [Primary Care Provider] -
--- NOTE | 2017-08-02 18:32 | ASMTCMCOM ---
CM Note CM Note Notes: Spoke with Juanirojessie who needed medications to get authorization from BC/BS. They have submitted and are waiting on the authorization information. [facility] expects to hear from them no later than tomorrow. [facility] as the auth comes through.CM to check with Agnes early in the day to finalize. CM will follow. Date Signed: 08/02/2017 06:31 PM Electronically Signed By:Yanci Abreu LCSW
--- NOTE | 2017-08-02 19:06 | HOSPPROG ---
Hospitalist Progress Note Assessment/Plan: 87 yo female with h/o esophageal cancer admitted with N/V, now awaiting SNF placement / insurance approval # intractable N/V - resolved, tolerating PO now - cont zofran prior to meals # PE - on lovenox; follow very closely given recent GIB - will cont lovenox rather than xarelto # esophageal cancer s/p multiple dilations with stent placed 05/2017 - last chemo 1 week - appreciate palliative care c/s - f/u with Dr. Graham # suspected aspiration pna - cont moxifloxacin day 11/14, cough suppressant. - needs home O2, still requiring 2 LPM - aspiration precautions / elevate head to 30 degrees # bipolar - cont lithium, seroquel # weakness - likely d/t poor PO intake - PT/OT - awaiting SNF # constipation - bowel regimen # dispo - waiting SNF placement, CM working on dispo, insurance authorization Subjective: Pt feels fine. No more N/V. No abdominal pain. Still some wet cough. No fevers, CP or SOB. Tolerating po well. Objective: Vital Signs Temp Pulse Resp BP Pulse Ox 36.6 C 67 16 123/67 H 95 08/02/17 16:00 08/02/17 16:00 08/02/17 16:00 08/02/17 16:00 08/02/17 16:00 Laboratory Results 08/01/17 04:52 07/31/17 04:52 08/01/17 08/02/17 08/03/17 05:59 05:59 05:59 Intake Total 950 1250 400 Balance 950 1250 400 - Physical Exam Constitutional: no apparent distress Eyes: PERRL Ears, Nose, Mouth, Throat: moist mucous membranes Cardiovascular: regular rate and rhythym Respiratory: no respiratory distress Gastrointestinal: normoactive bowel sounds, soft, non-tender abdomen Skin: warm Musculoskeletal: generalized weakness Neurologic: AAOx3 Psychiatric: interacting appropriately ICD10 Worksheet Patient Problems: Problems Problem Status Onset Palliative care encounter Acute Deep venous thrombosis Active Diarrhea Acute Upper GI bleed Acute
[2017-08-02] MEDS: HYDROcodone/CPM TUSSIONEX 5 ML UDSYR PO SCH (20:33)
[2017-08-02] MEDS: LITHIUM CARBONATE 300 MG TAB PO SCH (20:33)
[2017-08-02] MEDS: traZODone 100 MG TAB PO SCH (20:35)
[2017-08-02] MEDS: QUEtiapine FUMARATE 300 MG TAB PO SCH (20:35)
[2017-08-03] MEDS: LEVOTHYROXINE 125 MCG TAB PO SCH (05:08)
[2017-08-03] MEDS ORDERED: GLYCERIN ADULT 1 EACH SUPP PR ONE (09:58)
[2017-08-03] MEDS: ONDANSETRON DISINTEGRATING 4 MG TAB PO SCH ×4 (10:02→21:14)
[2017-08-03] MEDS: PANTOPRAZOLE SODIUM 40 MG TAB PO SCH ×2 (10:02→20:10)
[2017-08-03] MEDS: MOXIFLOXACIN 400 MG TAB PO SCH (10:02)
[2017-08-03] MEDS: SENNOSIDES/DOCUSATE SODIUM TAB PO SCH ×2 (10:02→20:09)
[2017-08-03] MEDS: FLUTICASONE/SALMETER 250/50MCG DISKUS IH SCH ×2 (10:03→19:31)
[2017-08-03] MEDS: ENOXAPARIN 60 MG/0.6 ML SYR SC SCH ×2 (10:03→20:09)
--- NOTE | 2017-08-03 18:34 | ASMTCMCOM ---
CM Note CM Note Notes: Pt unable to go to [facility] today as approval from [employer] is still pending. Annamaria at [facility] tried many times today to clarify things w/Saleem longoria but unable to. [employer] Ph # given to Hospitalist, Dr coy to call and do physiciam to physician call. Met w/pt and daughter to explain and Annamaria also notified daughter. CM will follow. Date Signed: 08/03/2017 06:34 PM Electronically Signed By:Alexandria Kern RN
[2017-08-03] MEDS: QUEtiapine FUMARATE 300 MG TAB PO SCH (20:10)
[2017-08-03] MEDS: traZODone 100 MG TAB PO SCH (20:10)
[2017-08-03] MEDS: HYDROcodone/CPM TUSSIONEX 5 ML UDSYR PO SCH (20:10)
[2017-08-03] MEDS: LITHIUM CARBONATE 300 MG TAB PO SCH (20:10)
--- NOTE | 2017-08-03 20:15 | HOSPPROG ---
Hospitalist Progress Note Assessment/Plan: The patient is an 87yo F with PMH esophageal cancer who was admitted for N/V. ASSESSMENT/PLAN: Esophageal cancer, s/p esophageal stent -Chemo last week -HemOnc Dr. Graham -Pall med recs appreciated Intractable N/V, resolved -antiemetics PE -Full dose lovenox, no Xarelto because of recent GIB Aspiration PNA -finishing Moxifloxacin 08/04/17 for total 7days. -req home O2, 2L Bipolar disorder Hypothyroidism -continue home meds Generalized weakness/deconditioning -PT/OT Constipation -bowel regimen. Hyperchloremic metabolic acidosis, mild -likely from vomiting and IVF. Recheck AM labs. VTE prophylaxis: Lovenox Code Status: Full Status: inpt for > 2 midnight stay. Disposition: medsurg with discharge anticipated as soon as insurance approves transfer to SNF. Attempted to do fcmx-ec-voxs w/ insurance company today, but they did not respond to my voicemail. ____ SUBJECTIVE: Today pt feels well, tolerates po. Wants to go to SNF. OBJECTIVE: Physical Exam: General: The patient is an elderly female who is alert and in no acute distress. HEENT: normocephalic, extraocular movements intact, conjunctivae clear. Mucous membranes moist. Neck: trachea midline, no visible masses. CV: +S1/S2, RRR, no MRG. Resp: unlabored, CTAB no RRW. Abd: soft and nondistended. Bowel sounds present. Musculoskeletal: reduced muscle tone/bulk. Neuro: cranial nerves II XII grossly intact. Intact gross motor and sensory function. Psych: appropriate mood and appropriate affect. Skin: No pallor. No petechiae. Heme/lymph: No peripheral edema at bilateral lower legs. Labs/Imaging/Other Tests: Personally reviewed/interpreted. Objective: Vital Signs Temp Pulse Resp BP Pulse Ox 36.7 C 77 16 118/64 94 08/03/17 19:55 08/03/17 19:55 08/03/17 19:55 08/03/17 19:55 08/03/17 19:55 Laboratory Results 08/01/17 04:52 07/31/17 04:52 08/02/17 08/03/17 08/04/17 05:59 05:59 05:59 Intake Total 1250 400 380 Balance 1250 400 380 ICD10 Worksheet Patient Problems: Problems Problem Status Onset Palliative care encounter Acute Deep venous thrombosis Active Diarrhea Acute Upper GI bleed Acute
[2017-08-04] MEDS: LEVOTHYROXINE 125 MCG TAB PO SCH (05:02)
[2017-08-04] MEDS: MOXIFLOXACIN 400 MG TAB PO SCH (08:36)
[2017-08-04] MEDS: SENNOSIDES/DOCUSATE SODIUM TAB PO SCH ×2 (08:36→20:27)
[2017-08-04] MEDS: PANTOPRAZOLE SODIUM 40 MG TAB PO SCH ×2 (08:36→20:26)
[2017-08-04] MEDS: FLUTICASONE/SALMETER 250/50MCG DISKUS IH SCH ×2 (08:37→20:40)
[2017-08-04] MEDS: ENOXAPARIN 60 MG/0.6 ML SYR SC SCH ×2 (08:37→20:25)
[2017-08-04] MEDS: ONDANSETRON DISINTEGRATING 4 MG TAB PO SCH ×3 (08:38→20:26)
[2017-08-04] MEDS ORDERED: PEG 3350/NA SULF,BICARB,CL/KCL (GAVILYTE-G) 4000 ML BTL PO ONE (12:14)
--- NOTE | 2017-08-04 14:24 | PDIAF ---
- Diagnosis Diagnosis: esophageal cancer, nausea / vomiting, aspiration pneumonia Code Status: Full Code - Medication Management Discharge Medications: Medications to Continue on Transfer traZODone [traZODONE 50MG (*)] 100 mg PO HS 02/13/16 [Last Taken 07/27/17] Fluticasone/Salmeter 250/50Mcg [Advair 250/50 (*)] 1 puffs IH BID 06/22/17 [ Last Taken 07/28/17 09:00] [place] Carbonate [[place] Carbonate Tab 300 mg (*)] 150 mg PO HS 06/22/17 [ Last Taken 07/27/17] Omeprazole [Prilosec 20 mg] 40 mg PO BID 06/22/17 [Last Taken 07/28/17] PACLitaxel [TaxoL] 0 mg IV WE 06/22/17 [Last Taken 07/20/17] QUEtiapine FUMARATE [Seroquel 300mg (*)] 300 mg PO HS 06/22/17 [Last Taken 07/27] Levothyroxine [Synthroid 125 mcg (*)] 125 mcg PO DAILY06 07/28/17 [Last Taken ] Enoxaparin [Lovenox 60 MG (*)] 60 mg SC BID #60 syr 08/02/17 [Last Taken Unknown ] Bisacodyl [Bisacodyl (*)] 5 mg PO PRN PRN #30 tab 08/04/17 [Last Taken Unknown] Bisacodyl [Magic Bullet 10 mg] 10 mg WI DAILY PRN #30 supp 08/04/17 [Last Taken Unknown] Magnesium Hydroxide [Milk of Magnesia] 30 ml PO DAILY PRN #30 oral.susp [Last Taken Unknown] Ondansetron Odt [Zofran Odt 4 mg (*)] 4 mg PO ACHS PRN tab 08/04/17 [Last Taken Unknown] Polyethylene Glycol 3350 [Miralax 17 gm (*)] 17 gm PO DAILY PRN pkt 08/04/17 [ Last Taken Unknown] Sennosides/Docusate Sodium [Senokot-S] 1 - 2 tab PO BID tab 08/04/17 [Last Taken Unknown] [employer]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 PICC Care - Routine: N/A - Orders Services needed: Registered Nurse, Physical Therapy, Occupational Therapy Isolation Type: None Oxygen: 2.5 LPM Diet Recommendation: no restrictions on diet Diet Texture: Regular Texture Diet, Thin Liquids, Meds Whole w/Liquids Weigh Patient: weekly Nguyen: Not applicable - Follow Up Care Current Providers and Referrals: Amol Graham MD [Medical Doctor] - follow up in 1 week (please schedule follow-up) Rayray Raines MD [Primary Care Provider] -
--- NOTE | 2017-08-04 14:32 | ASMTCMCOM ---
CM Note CM Note Notes: Pt's insurance approved pt to DC to [facility] today. Final orders faxed. Pt's dtr will transport once pt has a BM. Date Signed: 08/04/2017 02:32 PM Electronically Signed By:Alexandra Fox LCSW
--- NOTE | 2017-08-04 18:10 | HOSPPROG ---
Hospitalist Progress Note Assessment/Plan: Assessment: 87 yo female with h/o esophageal cancer admitted with N/V, c/b severe constipation Plan: # intractable N/V - resolved, tolerating PO now - cont zofran prior to meals # Hx PE - on lovenox; follow very closely given recent GIB - will cont lovenox # esophageal cancer s/p multiple dilations with stent placed 05/2017 - last chemo 1+ week ago - appreciate palliative care c/s - f/u with Dr. Graham # suspected aspiration pna POA - s/p moxifloxacin day 01/14 - needs home O2, still requiring 2 LPM - aspiration precautions / elevate head to 30 degrees # bipolar - cont lithium, seroquel # weakness - likely d/t poor PO intake - PT/OT - requiring SNF # constipation - severe today, very aggressive bowel regimen only partially successful, golytely 2L + 2 enemas - spent a considerable amount of time counseling patient and daughter regarding this issue, as well as following-up multiple times w/ patient and RN to evaluate whether bowel stimulate strategies working Diet. regular Code. full PPx. lovenox Dispo. ADD 08/05 to SNF, pending bowel movements, would be unsafe to discharge patient today given incomplete resolution of severe constipation (7+ days) Subjective: patient fatigued after trialing all laxatives/enemas today Objective: Vital Signs Temp Pulse Resp BP Pulse Ox 36.6 C 72 16 152/65 H 87 L 08/04/17 11:57 08/04/17 16:45 08/04/17 16:45 08/04/17 16:45 08/04/17 16:45 Laboratory Results 08/01/17 04:52 08/04/17 05:00 08/03/17 08/04/17 08/05/17 05:59 05:59 05:59 Intake Total 400 830 Balance 400 830 - Time Spent With Patient Time Spent with Patient: greater than 35 minutes Time Spent with Patient: Greater than 35 minutes spent on this patients care, greater than 50% of time spent counseling, educating, and coordinating care regarding the above mentioned plan. - Pending Discharge Pending Discharge Within 24 Hours: Yes Pending Discharge Date: 08/05/17 Pending Discharge Time: 11:00 - Physical Exam Constitutional: not in pain, chronically ill appearing, uncomfortable Cardiovascular: regular rate and rhythym, no murmur, rub, or gallop Respiratory: no respiratory distress, no rales or rhonchi, clear to auscultation Gastrointestinal: tenderness, distension (moderately), No normoactive bowel sounds (hypoactive bowel sounds), No guarding Neurologic: AAOx3 Psychiatric: interacting appropriately, not anxious, not encephalopathic, thought process linear ICD10 Worksheet Patient Problems: Problems Problem Status Onset Deep venous thrombosis Active Diarrhea Acute Upper GI bleed Acute Palliative care encounter Acute
[2017-08-04] MEDS: LITHIUM CARBONATE 300 MG TAB PO SCH (20:26)
[2017-08-04] MEDS: HYDROcodone/CPM TUSSIONEX 5 ML UDSYR PO SCH (20:26)
[2017-08-04] MEDS: QUEtiapine FUMARATE 300 MG TAB PO SCH (20:26)
[2017-08-04] MEDS: traZODone 100 MG TAB PO SCH (20:26)
[2017-08-05] MEDS: LEVOTHYROXINE 125 MCG TAB PO SCH (05:38)
[2017-08-05] MEDS: PANTOPRAZOLE SODIUM 40 MG TAB PO SCH (08:36)
[2017-08-05] MEDS: ONDANSETRON DISINTEGRATING 4 MG TAB PO SCH (08:37)
[2017-08-05] MEDS: SENNOSIDES/DOCUSATE SODIUM TAB PO SCH (08:37)
[2017-08-05] MEDS: ENOXAPARIN 60 MG/0.6 ML SYR SC SCH (08:37)
[2017-08-05 09:39] VITALS: O2SAT 96
--- NOTE | 2017-08-05 09:48 | ASMTCMCOM ---
CM Note CM Note Notes: Pt unable to DC yesterday because she did not have a bowel movement until late. Pt ready for DC today. [facility] will provide transport at 11:00.Per Annamaria in admissions, DC orders are less than 24 hrs old so she does not need new ones. Date Signed: 08/05/2017 09:48 AM Electronically Signed By:Alexandra Fox LCSW
--- NOTE | 2017-08-05 10:15 | PDIAF ---
- Diagnosis Diagnosis: esophageal cancer, nausea / vomiting, aspiration pneumonia Code Status: Full Code - Medication Management Discharge Medications: Medications to Continue on Transfer traZODone [traZODONE 50MG (*)] 100 mg PO HS 02/13/16 [Last Taken 07/27/17] Fluticasone/Salmeter 250/50Mcg [Advair 250/50 (*)] 1 puffs IH BID 06/22/17 [ Last Taken 07/28/17 09:00] [place] Carbonate [[place] Carbonate Tab 300 mg (*)] 150 mg PO HS 06/22/17 [ Last Taken 07/27/17] Omeprazole [Prilosec 20 mg] 40 mg PO BID 06/22/17 [Last Taken 07/28/17] PACLitaxel [TaxoL] 0 mg IV WE 06/22/17 [Last Taken 07/20/17] QUEtiapine FUMARATE [Seroquel 300mg (*)] 300 mg PO HS 06/22/17 [Last Taken 07/27] Levothyroxine [Synthroid 125 mcg (*)] 125 mcg PO DAILY06 07/28/17 [Last Taken ] Enoxaparin [Lovenox 60 MG (*)] 60 mg SC BID #60 syr 08/02/17 [Last Taken Unknown ] Bisacodyl [Bisacodyl (*)] 5 mg PO PRN PRN #30 tab 08/04/17 [Last Taken Unknown] Bisacodyl [Magic Bullet 10 mg] 10 mg UT DAILY PRN #30 supp 08/04/17 [Last Taken Unknown] Magnesium Hydroxide [Milk of Magnesia] 30 ml PO DAILY PRN #30 oral.susp [Last Taken Unknown] Ondansetron Odt [Zofran Odt 4 mg (*)] 4 mg PO ACHS PRN tab 08/04/17 [Last Taken Unknown] Polyethylene Glycol 3350 [Miralax 17 gm (*)] 17 gm PO DAILY PRN pkt 08/04/17 [ Last Taken Unknown] Sennosides/Docusate Sodium [Senokot-S] 1 - 2 tab PO BID tab 08/04/17 [Last Taken Unknown] Tow Feeder Antibiotics: NA Discharge Medications: Refer to the Discharge Home Medication list for PRN reason. PICC Care - Routine: N/A - Orders Services needed: Registered Nurse, Physical Therapy, Occupational Therapy Isolation Type: None Oxygen: 2.5 LPM Diet Recommendation: no restrictions on diet Diet Texture: Regular Texture Diet, Thin Liquids, Meds Whole w/Liquids Weigh Patient: weekly Nguyen: Not applicable Additional: Monitor for constipation closely - Follow Up Care Current Providers and Referrals: Amol Graham MD [Medical Doctor] - follow up in 1 week (please schedule follow-up) Rayray Raines MD [Primary Care Provider] -
[2017-08-05] MEDS: FLUTICASONE/SALMETER 250/50MCG DISKUS IH SCH (10:17)
[2017-08-05 10:30] VITALS: BP 134/78; PULSE 76; RESP 18; TEMP 97.6
--- NOTE | 2017-08-05 15:46 | PDDCSUM ---
Discharge Summary Discharge Summary: DISCHARGE SUMMARY FOLLOW-UP ITEMS: Follow up with primary oncologist DATE OF ADMISSION: 07/28/2017 DATE OF DISCHARGE: 08/05/2017 DISCHARGE DIAGNOSES: 1. Acute intractable nausea and vomiting 2. Esophageal cancer with esophageal stricture 3. History of pulmonary embolism 4. Suspected aspiration pneumonia present on admission 5. Severe constipation 6. Acute pleural effusion and atelectasis CONSULTATIONS: None PROCEDURES / IMAGING: None CHIEF COMPLAINT: Acute nausea and vomiting SUBJECTIVE: Patient is feeling well at time of discharge, she has no respiratory complaints PHYSICAL EXAM ON DISCHARGE: Systolic blood pressure is 120-150, heart rate 80, afebrile overnight, satting well on 1 L nasal cannula LABS ON DISCHARGE: Hemoglobin 9.1, white blood count 4300, creatinine 0.9, lithium 0.3 HOSPITAL COURSE BY PROBLEM: The patient presented with acute intractable nausea and vomiting resulting in suspected aspiration pneumonia, present on admission. This was diagnosed based on a left-sided focal patchy infiltrate in the setting of esophageal cancer, esophageal stricture requiring prior dilations, and high risk for aspiration with her nausea and vomiting. She was treated with 7 days of moxifloxacin. She has some small pleural effusions and ongoing atelectasis, most likely secondary to immobility and generalized weakness. She was placed on incentive spirometer. Her nausea and vomiting were supportively treated with IV fluids and antiemetics, and resolved. She does have a history of pulmonary embolism was continued on her Lovenox. Her hospitalization was complicated by severe constipation, and she required a GoLYTELY prep as well as enemas and suppositories in order to move her bowels. At the time of discharge, the patient is moving her bowels, she was breathing well on 1 L nasal cannula. DISCHARGE MEDICATIONS: Please see official discharge medication reconciliation sheet in chart , continue all home medications without any changes. DISCHARGE INSTRUCTIONS: Please follow up with primary oncologist after receiving some rehab.
--- NOTE | 2017-08-06 15:11 | ASDISCHSUM ---
Discharge Information Plan Status:SNF Medically Cleared to Leave: Discharge Date:08/05/2017 11:08 AM D/C Disposition: ADT D/C Disposition:Long-Term Facility Projected Discharge Date:08/02/2017 11:00 AM Transportation at D/C: Discharge Delay Reason: Follow-Up Date:08/02/2017 11:00 AM Discharge Slot: Final Diagnosis: Placement Information Referral Type:*Home Health Care Services Referral ID:[id number] Provider Name: Address 1: Phone Number: Address 2: Fax Number: City: [facility] Factors: State: Referral Type:*Fpc/SNF Referral ID:[id number] Provider Name:[facility] Address 1:[facility] [employer] Address 2: City:[place] Selection Factors: State:[place] Referral Type:*Fpc/SNF Referral ID:[id number] Provider Name:[facility] Address 1:[facility] Address 2: City:[place] Selection Factors: State:[place] Patient Contact Information Contact Name:KRISTINE Relationship:Daughter Address:[address] Home Phone: City:[place] Alternate Phone: State/Zip Code:[place] [address] Email: Financial Information Financial Class: Primary Plan Desc:MEDICARE IP PART B ONLY Primary Plan Number:[id number] Secondary Plan Desc:GUID[employer] PPO Secondary Plan Number:[id number] Assessment Information [facility] CM Progress Note CM Note CM Note Notes: Pt in current treatment for gastric ca admitted for nausea, weakness and cough. Pt lives at [facility] and has [facility] pvt duty and [facility] for RN and PT. Palliative recommended for goals of care. Rama Cao and this Sw met with pt and dtr Kenzie. Pt was feeling overwhelmed and not ready to discuss goals or any change to DC plan. She did state she would like to feel better and get back to [place] where she regularly plays bridge. Recommended as one option [facility] palliative care for symptom mgmt once she is back home. Moving to SNF at [place] is another option. Pt wanted to meet with oncologist before having any further discussions. CM to follow. Date Signed: 07/29/2017 12:28 PM Electronically Signed By:Alexandra Fox LCSW [facility] CM Progress Note CM Note CM Note Notes: 07/31/[address] Brand's request met w/pt and daughter Kenzie [phone] to discuss need for SNF rehab. Please call Kenzie with d/c plan. Pt prefers [facility] or [facility] rehab only focused facilities. [facility] is third choice. [place] is fourth choice. Pt insurance is Medicare Part B and [employer]. Informed pt that insurance authorization will be important part in choosing a facility. Pt aware that [place] is private pay, she currently lives at [facility]. Case Management d/c poc: to SNF rehab pending acceptance and auth from insurance. Case Management to follow. Date Signed: 07/31/2017 02:38 PM Electronically Signed By:Alissa Aaron RN [facility] CM Progress Note CM Note CM Note Notes: Met w/pt and daughter, Kenzie to discuss SNF placemnt/choice of facility. Theri first choice is [facility]. [facility] 2nd choice. Spoke w/Caterina at [facility] and she will submit for auth from insurance; she wondered if pt would still be on chemo treatments at rehab; that is currently up in the air until their f/u appt w/Dr Reyes later this week; pt and her daughter seemed to think the MD's might want her to get stronger w/rehab before starting chemo again- shared this info w/Caterina. Caterina also said that pt will have co-pay until her deductable is met and she will come tomorrow to talk w/ pt about this. Updated therapy notes sent to [facility]. CM will follow. Date Signed: 08/01/2017 03:57 PM Electronically Signed By:Alexandria Kern RN [facility] CM Progress Note CM Note CM Note Notes: Spoke with [facility] who needed medications to get authorization from BC/BS. They have submitted and are waiting on the authorization information. [facility] expects to hear from them no later than tomorrow. Patient is [facility] soon as the auth comes through.CM to check with Agnes early in the day to finalize. CM will follow. Date Signed: 08/02/2017 06:31 PM Electronically Signed By:Yanci Abreu LCSW [facility] CM Progress Note CM Note CM Note Notes: Pt unable to go to [facility] today as approval from [email or web address] is still pending. Annamaria at [facility] tried many times today to clarify things w/Saleem longoria but unable to. Mc cross Ph # given to Hospitalist, Dr coy to call and do physiciam to physician call. Met w/pt and daughter to explain and Annamaria also notified daughter. CM will follow. Date Signed: 08/03/2017 06:34 PM Electronically Signed By:Alexandria Kern RN [facility] CM Progress Note CM Note CM Note Notes: Pt's insurance approved pt to DC to [facility] today. Final orders faxed. Pt's dtr will transport once pt has a BM. Date Signed: 08/04/2017 02:32 PM Electronically Signed By:Alexandra Fox LCSW [facility] CM Progress Note CM Note CM Note Notes: Pt unable to DC yesterday because she did not have a bowel movement until late. Pt ready for DC today. [facility] will provide transport at 11:00.Per Annamaria in admissions, DC orders are less than 24 hrs old so she does not need new ones. Date Signed: 08/05/2017 09:48 AM Electronically Signed By:Alexandra Fox LCSW Intervention Information Intervention Type:*IM-Signed Date of Service:08/04/2017 02:55 PM Patient Type:Inpatient Staff Member:Lida Persaud Hours: Discipline: Severity: Comment:
== END 2017-08-05 11:08 | DRG 391 ==
LOC: F1N 17:17 → OBSVTOIN 18:01
PROVIDERS: ADMIT Hospitalist; ATTEND Hospitalist
DX: R11.2 Nausea with vomiting, unspecified (principal); T45.1X5A Adverse effect of antineoplastic and immunosuppressive drugs, initial encounter; C16.0 Malignant neoplasm of cardia; J69.0 Pneumonitis due to inhalation of food and vomit; C78.1 Secondary malignant neoplasm of mediastinum; E43 Unspecified severe protein-calorie malnutrition; Z68.20 Body mass index [BMI] 20.0-20.9, adult; J90 Pleural effusion, not elsewhere classified; J98.11 Atelectasis; K59.00 Constipation, unspecified; J45.909 Unspecified asthma, uncomplicated; I10 Essential (primary) hypertension; F31.9 Bipolar disorder, unspecified; E03.9 Hypothyroidism, unspecified; Z86.711 Personal history of pulmonary embolism; Z79.01 Long term (current) use of anticoagulants; Z79.899 Other long term (current) drug therapy
CPT/HCPCS: 92610-GN; 97116-GP; 97162-GP; 97165-GO; G8978-GP-CJ; G8979-GP-CI; G8987-GO-CI; G8988-GO-CI; G8989-GO-CI; G8996-GN-CH; G8997-GN-CH; G8998-GN-CH; J1650; Q9967

== ENCOUNTER 2017-10-27 14:08 | Inpatient (IN) | payer OTHER ==
[2017-10-27 15:31] LABS: PLATELET COUNT 301 10^3/uL (150-400)
[2017-10-27 15:40] LABS: INR 1.16 (0.83-1.16)
--- NOTE | 2017-10-27 15:41 | EDPHY ---
HPI/HX/ROS/PE/MDM Narrative: CHIEF COMPLAINT: Vomiting blood HISTORY OF PRESENT ILLNESS: The patient is an 87 y/o female with a history of esophageal cancer complaining of 3 episodes of vomiting blood, onset last night. Patient and family report hematemesis with clots that started last night, 3 hr after eating. Patient had another bout of emesis at home this morning and again at [facility]. She was referred to the emergency department. When her esophageal cancer was diagnosed she did have a history of coffee-ground emesis but has not had hematemesis with clots previously. She reports feeling faint last night and near syncopal. Denies history of ulcer or lower GI bleed. No cardiac history. Denies chest pain, shortness of breath, palpitations, diarrhea, urinary complaints, or headache. Most of her lightheadedness has resolved currently. REVIEW OF SYSTEMS: Aside from elements discussed in the HPI, a comprehensive 10-point review of systems was reviewed and is negative. 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 HEENT: Atraumatic. Eyes: No icterus, no injection. Mouth: dry mucous membranes. No erythema or lesions. Neck: supple with no adenopathy. LUNGS: Clear to auscultation bilaterally, no wheezes, rhonchi or rales. CARDIAC: Regular rate and rhythm, no rubs, murmurs or gallops. ABDOMEN: Soft, nontender, nondistended, bowel sounds normal. BACK: No CVA tenderness. EXTREMITIES: No trauma. No edema. Range of motion is normal throughout. NEURO: Alert and oriented, grossly nonfocal. SKIN: Warm and dry, no rash. PSYCHIATRIC: Normal mentation, no agitation. Portions of this note were transcribed by a medical doctor md. I personally performed a history, physical exam, medical decision making, and confirmed accuracy of information the transcribed note. ED Course: The patient is an 87 y/o female with a history of esophageal cancer and a stent presenting with 3 episodes of vomiting blood, onset last night. On exam she is pale, has dry mucous membranes and a benign abdomen. The emesis sample that she brought in reveals a large volume of clotted emesis. I have discussed with the patient that she will likely need to be admitted; patient and her daughter are comfortable with this plan. Lab work, EKG, and chest x-ray ordered. 1555: 12-LEAD EKG: Please see the full report in [facility]. My interpretation : Normal sinus rhythm with a rate of 95, consider right ventricular hypertrophy 1610: Consulted with Dr. Vieira, sandblasting supervisor, regarding this patient. She reports that with bleeding esophageal cancer there are limited options. She will consult with Dr. Troncoso and continue supportive care. 1658: Consulted with hospitalist service, Dr. Brand accepts admission of this patient. 1719: Reviewed patient's chest x-ray, there is increased nodular density that could be member service representative of metastatic disease. MDM: Differential diagnoses for the patient's symptom complex was considered including but not limited to Micaela-Menard tear, gastritis, esophagitis, bleeding esophageal ulcer, stent perforation, esophageal rupture, variceal bleeding. - Data Points Imaging Results: Imaging Impressions Chest X-Ray 10/27/17 16:00 Impression: 1. Distal esophageal stent in stable position. 2. Increase in nodule left upper lobe now measuring 9 mm possibly representing pulmonary metastatic disease. 3. Patchy consolidation and small effusion remain at the left base. Imaging: I viewed and interpreted images myself Laboratory Results: Laboratory Results 10/27/17 15:18 10/27/17 15:18 10/27/17 10/27/17 10/27/17 15:20 15:18 15:18 WBC RBC Hgb POC Hgb 10.9 gm/dL L gm/dL (12.6-16.3) Hct POC Hct 32 % L % (38-47) MCV MCH MCHC RDW Plt Count MPV Neut % (Auto) Lymph % (Auto) [place] % (Auto) Eos % (Auto) Baso % (Auto) Nucleat RBC Rel Count Absolute Neuts (auto) Absolute Lymphs (auto) Absolute Monos (auto) Absolute Eos (auto) Absolute Basos (auto) Absolute Nucleated RBC Immature Gran % Immature Gran # PT INR POC Sodium 139 mEq/L mEq/L (135-145) Sodium 139 mEq/L mEq/L (135-145) POC Potassium 4.5 mEq/L mEq/L (3.3-5.0) Potassium 4.8 mEq/L mEq/L (3.5-5.2) POC Chloride 107 mEq/L mEq/L (97-110) Chloride 107 mEq/L mEq/L (97-110) Carbon Dioxide 21 mEq/l L mEq/l (22-31) Anion Gap 11 mEq/L mEq/L (8-16) POC BUN 27 mg/dL H mg/dL (7-23) BUN 29 mg/dL H mg/dL (7-23) Creatinine 0.9 mg/dL mg/dL (0.6-1.0) POC Creatinine 0.9 mg/dL mg/dL (0.6-1.0) Estimated GFR 59 Glucose 133 mg/dL H mg/dL (70-100) POC Glucose 142 mg/dL H mg/dL (70-100) Calcium 8.4 mg/dL L mg/dL (8.5-10.4) Total Bilirubin 0.5 mg/dL mg/dL (0.1-1.4) Conjugated Bilirubin 0.5 mg/dL mg/dL (0.0-0.5) Unconjugated Bilirubin 0.0 mg/dL mg/dL (0.0-1.1) AST 18 IU/L IU/L (14-46) ALT 39 IU/L IU/L (9-52) Alkaline Phosphatase 73 IU/L IU/L (38-126) Troponin I < 0.012 ng/mL ng/mL (0.000-0.034) Total Protein 6.0 g/dL L g/dL (6.3-8.2) Albumin 2.8 g/dL L g/dL (3.5-5.0) Patient ABO/Rh A POSITIVE Antibody Screen NEGATIVE 10/27/17 10/27/17 15:18 15:18 WBC 7.10 10^3/uL 10^3/uL (3.80-9.50) RBC 3.35 10^6/uL L 10^6/uL (4.18-5.33) Hgb 10.3 g/dL L g/dL (12.6-16.3) POC Hgb Hct 31.8 % L % (38.0-47.0) POC Hct MCV 94.9 fL fL (81.5-99.8) MCH 30.7 pg pg (27.9-34.1) MCHC 32.4 g/dL g/dL (32.4-36.7) RDW 15.4 % H % (11.5-15.2) Plt Count 301 10^3/uL 10^3/uL (150-400) MPV 8.9 fL fL (8.7-11.7) Neut % (Auto) 84.3 % H % (39.3-74.2) Lymph % (Auto) 7.3 % L % (15.0-45.0) [place] % (Auto) 7.3 % % (4.5-13.0) Eos % (Auto) 0.0 % L % (0.6-7.6) Baso % (Auto) 0.3 % % (0.3-1.7) Nucleat RBC Rel Count 0.0 % % (0.0-0.2) Absolute Neuts (auto) 5.98 10^3/uL 10^3/uL (1.70-6.50) Absolute Lymphs (auto) 0.52 10^3/uL L 10^3/uL (1.00-3.00) Absolute Monos (auto) 0.52 10^3/uL 10^3/uL (0.30-0.80) Absolute Eos (auto) 0.00 10^3/uL L 10^3/uL (0.03-0.40) Absolute Basos (auto) 0.02 10^3/uL 10^3/uL (0.02-0.10) Absolute Nucleated RBC 0.00 10^3/uL 10^3/uL (0-0.01) Immature Gran % 0.8 % % (0.0-1.1) Immature Gran # 0.06 10^3/uL 10^3/uL (0.00-0.10) PT 15.0 SEC SEC (12.0-15.0) INR 1.16 (0.83-1.16) POC Sodium Sodium POC Potassium Potassium POC Chloride Chloride Carbon Dioxide Anion Gap POC BUN BUN Creatinine POC Creatinine Estimated GFR Glucose POC Glucose Calcium Total Bilirubin Conjugated Bilirubin Unconjugated Bilirubin AST ALT Alkaline Phosphatase Troponin I Total Protein Albumin Patient ABO/Rh Antibody Screen Medications Given: Sodium Chloride (Ns) 1,000 mls @ 100 mls/hr IV CONT MALINDA Stop: 10/16/18 17:44 Last Admin: 10/27/17 19:00 Dose: 1,000 mls Eldorado Carbonate (Eldorado Carbonate) 150 mg PO DAILY@1800 MALINDA Stop: 04/25/18 20:14 Last Admin: 10/27/17 20:21 Dose: 150 mg Pantoprazole Sodium (Protonix) 40 mg IVP Q12H MALINDA Stop: 04/25/18 17:59 Last Admin: 10/27/17 20:23 Dose: 40 mg Quetiapine Fumarate (Seroquel) 300 mg PO DAILY@1800 MALINDA Stop: 04/25/18 20:14 Last Admin: 10/27/17 20:21 Dose: 300 mg Fluticasone/Salmeterol (Advair) 1 puffs IH BID MALINDA Stop: 04/25/18 20:59 Last Admin: 10/27/17 20:40 Dose: Not Given Trazodone HCl (Trazodone) 100 mg PO DAILY@1800 MALINDA Stop: 04/25/18 20:14 Last Admin: 10/27/17 20:21 Dose: 100 mg Discontinued Medications Sodium Chloride (Ns) 500 mls @ 1,500 mls/hr IV ONCE ONE Stop: 10/27/17 17:55 Last Admin: 10/27/17 20:20 Dose: 500 mls Point of Care Test Results: 10/27/17 15:20 POC Sodium 139 POC Potassium 4.5 POC Chloride 107 POC BUN 27 H POC Creatinine 0.9 POC Glucose 142 H General Time Seen by Provider: 10/27/17 14:44 Initial Vital Signs: Initial Vital Signs Temperature (C) 36.4 C 10/27/17 14:16 Heart Rate 100 10/27/17 14:16 Respiratory Rate 16 10/27/17 14:16 Blood Pressure 112/55 L 10/27/17 14:16 O2 Sat (%) 96 10/27/17 14:16 O2 Delivery Mode Room Air Allergies/Adverse Reactions: codeine [Codeine] Allergy (Verified 10/05/12 14:17) Rash Penicillins Allergy (Verified 10/05/12 14:17) Home Medications: Medication Instructions Recorded traZODone [traZODONE 50MG (*)] 100 mg PO DAILY@1800 02/13/16 Fluticasone/Salmeter 250/50Mcg 1 puffs IH BID 06/22/17 [Advair 250/50 (*)] Eldorado Carbonate [Eldorado 150 mg PO DAILY@1800 06/22/17 Carbonate Tab 300 mg (*)] Omeprazole [Prilosec 20 mg] 40 mg PO BID 06/22/17 QUEtiapine FUMARATE [Seroquel 300 mg PO DAILY@1800 06/22/17 300mg (*)] Polyethylene Glycol 3350 [Miralax 17 gm PO DAILY PRN pkt 08/04/17 17 gm (*)] Albuterol Sulfate [Ventolin Hfa] 1 - 2 puffs PO Q4H PRN 10/27/17 Levothyroxine [Synthroid 100 mcg 100 mcg PO DAILY06 10/27/17 (*)] Departure - Dep[facility]ure [facility] Clinical Impression: Upper GI bleed Hematemesis Qualifiers: Nausea presence: with nausea Qualified Code(s): K92.0 - Hematemesis Esophageal cancer Qualifiers: Malignant neoplasm of esophagus location: unspecified location Qualified Code(s ): C15.9 - Malignant neoplasm of esophagus, unspecified Condition: Serious Report Scribed for: Aurelia Kerr Report Scribed by: Hollie Guillen Date of Report: 10/27/17 Time of Report: 15:38
--- NOTE | 2017-10-27 15:57 | CPEKG ---
Heart Rate: 95 RR Interval: 632 P-R Interval: 120 QRSD Interval: 94 QT Interval: 408 QTC Interval: 513 P Enid: 17 QRS Enid: -67 T Wave Enid: 61 EKG Severity - ABNORMAL ECG - EKG Impression: SINUS RHYTHM EKG Impression: LEFT ANTERIOR FASCICULAR BLOCK EKG Impression: LOW VOLTAGE IN FRONTAL LEADS EKG Impression: CONSIDER RIGHT VENTRICULAR HYPERTROPHY EKG Impression: PROLONGED QT INTERVAL Electronically Signed By: Aurelia Kerr 27-Oct-2017 21:37:27
[2017-10-27] MEDS ORDERED: ACETAMINOPHEN 325 MG TAB PO PRN (17:30)
[2017-10-27] MEDS ORDERED: ONDANSETRON DISINTEGRATING 4 MG TAB PO PRN (17:30)
[2017-10-27] MEDS ORDERED: NS 500 ML IV ONE (17:36)
--- NOTE | 2017-10-27 18:07 | GCON ---
[f rep st] CONSULTATION DATE OF CONSULTATION: 10/27/2017 CHIEF COMPLAINT: Hematemesis. HPI: I am asked to see this patient in consultation by Dr. Kerr for chief complaint of hematemes is. The patient is an 87-year-old, known to our practice for diagnosis of esophageal cancer, followe d by Dr. Troncoso. She underwent serial esophageal dilations and eventually underwent esophageal stent p lacement on June 08, 2017. This helped her dysphagia significantly. She now has been able to re sume p.o. intake, although she does note that she has had decreased appetite for the past few weeks. She is undergoing chemotherapy and immunological therapy through [facility]. Yes terday, 3 hours after eating, she vomited bright red blood, but without food, and that again happened this morning after eating breakfast. Three hours later, she vomited bright red blood. She is havin g no GERD symptoms. No history of peptic ulcer disease or prior history of bleeding. No diarrhea, c onstipation. Has had no blood in her stools or melena. No abdominal pain. ALLERGIES: Codeine and penicillin. MEDICATIONS: At home, trazodone, Senokot, Seroquel, MiraLAX, Prilosec 40 mg twice daily, lithium, Sy nthroid, and Advair. PAST MEDICAL HISTORY: Esophageal cancer at the GE junction, status post stent. History of pulmonary embolism, treated with anticoagulation, but is off now. Asthma, hypertension, bipolar disease. SOCIAL HISTORY: She drinks a glass of wine with dinner every night. FAMILY HISTORY: Negative for GI malignancies. REVIEW OF SYSTEMS: I performed a complete review of systems which is negative except for the pertine nt positives and negatives noted above in the HPI. PHYSICAL EXAM: VITAL SIGNS: Afebrile at 36, BP 105/69, pulse 95. GENERAL: She is alert and orient ed, somewhat pale appearing. EYES: No scleral icterus. HEENT: No oral lesions. CARDIOVASCULAR: Regular rhythm. CHEST: Clear to auscultation. Abdomen: Positive bowel sounds. Soft, nontender. Neurologic: Nonfocal. SKIN: No lesions. LABORATORY DATA: Hemoglobin of 10 and hematocrit of 32. Last week, her hemoglobin and hematocrit we re 12 and 39.5. BUN is 29 with a creatinine of 0.9. Pro time normal at 15. ASSESSMENT: Episode of hematemesis x2 in a patient with known underlying esophageal cancer and stent . It is possible that this could represent tumor growth with bleeding or potentially even tumor necr osis with treatment that she is receiving versus erosion of the stent or growth of the tumor through the stent. Unfortunately, endoscopic options are very limited for treating bleeding cancers. Genera lly, they do not respond to standard therapy available. I discussed that with the patient and the fa dereck present. At this point, I would recommend that we support her with conservative measures. Will put her on IV PPI. Follow serial H and H, and transfuse as needed. I will discuss the case with Dr Verito Troncoso, who knows the patient, and discuss if he has therapeutic options for treating potential bleed ing tumor. Thank you for this consult. Sincerely, /[id number]/MODL
--- NOTE | 2017-10-27 18:28 | GHP ---
[f rep st] HISTORY AND PHYSICAL DATE OF ADMISSION: 10/27/2017 CHIEF COMPLAINT: Hematemesis. HISTORY OF PRESENT ILLNESS: This is an 87-year-old female who presents with hematemesis. History somewhat limited as she is quite frustrated by having to repeat the same answers to the same questions. She had an episode last night which started a few hours after eating. She threw up about 2 cups of blood. She went to the oncologist's office today, where she had another episode. She is not feeling dizzy or lightheaded. She has no abdominal pain. She has a history of esophageal cancer and had a stent placed last May by Dr. Troncoso at [facility]. She was seen by Palliative Care on her last admission here; however, does not feel ready to see Palliative Care yet at this time, although I did bring this up. We discussed her code status and she would like to be [id number]. PAST MEDICAL/SURGICAL HISTORY: 1. Esophageal carcinoma, currently on immunotherapy. 2. History of pulmonary embolism, not currently on any anticoagulation. 3. History of an upper GI bleed, status post esophageal stenting. 4. Asthma. 5. Hypertension. 6. Bipolar disorder. MEDICATIONS: Please see medication reconciliation. ALLERGIES: Codeine and penicillin. SOCIAL HISTORY: She lives at [place], she is retired. Her daughter is at her bedside. FAMILY HISTORY: Negative for bipolar. REVIEW OF SYSTEMS: 10-point review of systems is conducted and is negative except per HPI. PHYSICAL EXAM: VITAL SIGNS: Blood pressure is 108/69, heart rate is 95, respiration rate 16, saturating 95% on room air. Temperature 36.4. GENERAL: The patient is a pleasant elderly female who appears somewhat frustrated by being in the emergency department. HEENT: Shows her to be slightly pale. CARDIOVASCULAR: Regular rate and rhythm. There are no murmurs, rubs, or gallops. PULMONARY: Lungs clear to auscultation bilaterally. ABDOMEN: Soft, nontender, nondistended. SKIN: No rash. : No Nguyen. NEUROLOGIC: Alert and oriented x3. She is moving all extremities. PSYCHIATRIC: Normal mood and affect. LABS: Hemoglobin is 10.3, her most previous was 12.5 on the 10th. Her BUN is 29. Bicarb is 21. DATA: 1. I discussed this at length with Dr. Troncoso. Will plan on conservative management. 2. I personally viewed and interpreted her chest x-ray. There is an esophageal stent. There is question of a consolidation in the left base. 3. EKG, which I personally viewed and interpreted, shows sinus rhythm. She has a left anterior fascicular block. IMPRESSION AND PLAN: 1. Upper gastrointestinal bleed: Certainly due to her esophageal cancer. Therapeutic options via endoscopy are very limited. I have discussed this with Dr. Troncoso, who will be involved in her care. He would like to try conservative measures initially, since she is hemodynamically stable with a reasonable hemoglobin. If she has significant additional bleeding overnight or her hemoglobin drops, he would like to be called emergently. He will perform an endoscopy at that time. May also need to consider Interventional Radiology embolization if she has significant hemorrhage. Will empirically put her on Protonix though likely, that we will have no effect on this. If her hemoglobin drops below 8, then would recommend transfusing. 2. Esophageal cancer: She is currently on immunotherapy. She is followed by Dr. Graham. Oncology should be notified of her admission tomorrow. 3. Deep venous thrombosis prophylaxis: Sequential compression devices. Pharmacologic is contraindicated. 4. Code status: She was previously full code, though would now like to be Do- Not-Resuscitate. I was present with her and her daughter when we discussed this. /[id number]/MODL MTDD
[2017-10-27] MEDS: NS 1,000 ML IV SCH (19:00)
--- NOTE | 2017-10-27 19:39 | PDMN ---
Medical Necessity Medical necessity: Pt meets IP criteria per MD; est los >2 mn for eval/tx of upper GI bleed r/t esophageal cancer; admit to SDU for further close monitoring , conservative management, IVFs, IV Protonix, GI/Oncology consults, possible blood transfusion & possible EGD or IR embolization; hx esophageal carcinoma on immunotherapy, PE, HTN, asthma; per H&P & order 10/27/17
[2017-10-27] MEDS ORDERED: LITHIUM CARBONATE 300 MG TAB PO SCH (20:15)
[2017-10-27] MEDS ORDERED: QUEtiapine FUMARATE 300 MG TAB PO SCH (20:15)
[2017-10-27] MEDS ORDERED: traZODone 50 MG TAB PO SCH (20:15)
[2017-10-27] MEDS: PANTOPRAZOLE SODIUM 40 MG VIAL IVP SCH (20:23)
[2017-10-27] MEDS: FLUTICASONE/SALMETER 250/50MCG DISKUS IH SCH (20:40)
--- NOTE | 2017-10-28 04:32 | HOSPPROG ---
Hospitalist Progress Note Assessment/Plan: Hospitalist night float note Called by RN urgently to evaluate patient. Patient had had some low normal blood pressures throughout the day and slightly down to pending H&Hs. Patient with sudden episode of hematemesis approximately 26626 mL of dipesh red blood. Patient also with associated drop in blood pressures to systolic in the 60s. Patient admitted for upper GI bleeding related to bleeding esophageal tumor. 1 L bolus and 1 unit of packed red blood cells ordered stat. Patient may require additional units of PRBCs. Placed into reversed Trendelenburg I called patient's daughter Kenzie and updated her on status and advised she arrive to bedside as soon as possible. GI consultation was reviewed. Limited interventions available at this time. Patient is a DNR DNI. After I contacted the patient's daughter blood pressures did slightly improved 90s to low 100s. Heart rate in the 90s. Vital signs reviewed.. Selected Entries 10/27/17 10/28/17 20:46 00:00 Heart Rate 83 83 Respiratory 16 28 H Rate O2 Sat (%) 94 91 L Blood Pressure 100/51 L Mean Arterial 67 Pressure (MAP) O2 Delivery Room Air Room Air Mode Heart Rate Heart Rate/ Heart Rate/ Source Monitor Monitor General-frail elderly in quite pale appearing female is lying quietly on her left side with cup to her face with approximately 50 cc dipesh red blood. Patient's bed is also covered in bright red blood as well. Skin - pale GI - abdomen soft. Resp - unlabored Neuro - patient awake and interactive sting few word answers appropriately. Plan - transfuse PRBCs now. 1 L IV fluid. Daughter is on her way to the hospital. Patient is DNR DNI Objective: Vital Signs Temp Pulse Resp BP Pulse Ox 36.3 C 83 28 H 100/51 L 91 L 10/27/17 20:17 10/28/17 00:00 10/28/17 00:00 10/28/17 00:00 10/28/17 00:00 Laboratory Results 10/27/17 23:55 PT 15.0 SEC (12.0-15.0) 10/27/17 15:18 INR 1.16 (0.83-1.16) 10/27/17 15:18 ICD10 Worksheet Patient Problems: Problems Problem Status Onset Esophageal cancer Acute Hematemesis Acute Upper GI bleed Acute Deep venous thrombosis Active Diarrhea Acute Palliative care encounter Acute
[2017-10-28 04:39] LABS: PLATELET COUNT 238 10^3/uL (150-400)
[2017-10-28] MEDS: ONDANSETRON 4 MG/2 ML VIAL IVP PRN ×2 (04:44→07:06)
[2017-10-28] MEDS ORDERED: LEVOTHYROXINE 100 MCG TAB PO SCH (06:00)
[2017-10-28] MEDS: PANTOPRAZOLE SODIUM 40 MG VIAL IVP SCH (06:18)
[2017-10-28] MEDS: NS 1,000 ML IV SCH (06:21)
--- NOTE | 2017-10-28 10:00 | SOAPPROG ---
MARCY Progress Note Assessment/Plan: Assessment: UGIB in setting of esophageal cancer s/p stent. Endoscopic options are very limited for treatment of bleeding tumor. Patient initially declined EGD but would consider repeat exam if continued bleeding. Discussed with Dr. Troncoso last night however given e/o significant bleed will discuss with him again this am about possible high risk EGD Plan: Continue supportive care IV PPI 10/28/17 09:57 Subjective: CC hematemesis Pt with recurrent hematemesis this AM, no melena feel better now Objective: Vital Signs Temp Pulse Resp BP Pulse Ox 35.6 C L 92 14 93/50 L 99 10/28/17 08:17 10/28/17 08:17 10/28/17 08:17 10/28/17 08:17 10/28/17 08:17 Laboratory Results 10/28/17 07:45 10/28/17 04:19 10/27/17 10/28/17 10/29/17 05:59 05:59 05:59 Intake Total 2496 Output Total 252 400 Balance 2244 -400 PT 15.0 SEC (12.0-15.0) 10/27/17 15:18 INR 1.16 (0.83-1.16) 10/27/17 15:18 Physical Exam - Physical Exam General Appearance: alert Respiratory: lungs clear Cardiac/Chest: regular rate, rhythm Abdomen: non-tender, soft ICD10 Worksheet Patient Problems: Problems Problem Status Onset Esophageal cancer Acute Hematemesis Acute Upper GI bleed Acute Deep venous thrombosis Active Diarrhea Acute Palliative care encounter Acute
[2017-10-28 11:15] VITALS: BP 84/48
[2017-10-28] MEDS: FLUTICASONE/SALMETER 250/50MCG DISKUS IH SCH (11:35)
[2017-10-28] MEDS ORDERED: PROMETHAZINE HCL 25 MG/ML INJ IVP PRN (14:09)
--- NOTE | 2017-10-28 14:13 | HOSPPROG ---
Hospitalist Progress Note Assessment/Plan: 87 y/o female new to my care 10/28 with #acute blood loss anemia in the setting of upper gi bleeding most likely d/t esophageal cancer and stent -I discussed the case with Dr. Troncoso who does not recommend endoscopic treatment -After discussing options with Sue family they have requested comfort care measures. They understand that her condition is grave in the setting that she has not been able to eat. Family is in agreement to discontinue monitoring h /h and transfusion. Will focus on comfort care. Palliative consult pending. Subjective: unresponsive Objective: Vital Signs Temp Pulse Resp BP Pulse Ox 36.8 C 98 21 H 84/48 L 96 10/28/17 11:14 10/28/17 11:14 10/28/17 11:14 10/28/17 11:14 10/28/17 11:14 Laboratory Results 10/28/17 12:08 10/28/17 04:19 10/27/17 10/28/17 10/29/17 05:59 05:59 05:59 Intake Total 2496 Output Total 252 400 Balance 2244 -400 PT 15.0 SEC (12.0-15.0) 10/27/17 15:18 INR 1.16 (0.83-1.16) 10/27/17 15:18 - Physical Exam Constitutional: not in pain, chronically ill appearing Cardiovascular: regular rate and rhythym, no murmur, rub, or gallop Respiratory: no respiratory distress, no rales or rhonchi, clear to auscultation Gastrointestinal: normoactive bowel sounds, soft, non-tender abdomen, no palpable masses Neurologic: other (aaox0), No facial droop ICD10 Worksheet Patient Problems: Problems Problem Status Onset Deep venous thrombosis Active Diarrhea Acute Upper GI bleed Acute Palliative care encounter Acute Hematemesis Acute Esophageal cancer Acute
--- NOTE | 2017-10-29 08:35 | GDS ---
[f rep st] DISCHARGE SUMMARY DATE OF : 10/28/2017. DIAGNOSES: 1. Esophageal cancer. 2. Acute blood loss anemia in the setting of upper gastrointestinal bleed from bleeding tumor. 3. History of pulmonary embolism. 4. History of asthma. 5. History of hypertension. 6. History of bipolar disorder. CONSULTANTS: Dr. Kinza Vieira and Dr. Karl Troncoso, [facility] of [facility]. HOSPITAL COURSE AND STAY BY PROBLEM: Acute blood loss anemia due to GI bleeding in the setting of es ophageal cancer: The patient was admitted to the hospital, where she was placed in the intensive car e unit. Her initial hemoglobin on presentation was 10.3, which then dropped to 6.7. She became hypo tensive. She received a total of 2 units of packed red blood cells. 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 Th e patient subsequently on the evening of 10/28/2017. /[id number]/MODL
== END 2017-10-28 14:36 | disposition expired | DRG 392 ==
LOC: F2N 18:35
PROVIDERS: ADMIT Family Medicine; ATTEND Family Medicine
PROC: 30233N1 Transfusion of Nonautologous Red Blood Cells into Peripheral Vein, Percutaneous Approach (ICD-10-PCS; principal; 2017-10-27)
DX: K22.8 Other specified diseases of esophagus (principal); C15.9 Malignant neoplasm of esophagus, unspecified; D62 Acute posthemorrhagic anemia; I10 Essential (primary) hypertension; F31.9 Bipolar disorder, unspecified; J45.909 Unspecified asthma, uncomplicated; Z66 Do not resuscitate; Z86.711 Personal history of pulmonary embolism
CPT/HCPCS: 82947-QW; J2405; P9016